=== PATIENT | female | born 1975 | race Caucasian/White ===

== ENCOUNTER 2018-08-18 16:36 | Inpatient (IN) | payer MEDICAID ==
[~2018-08-18] VITALS: Ht 157.5 cm; Wt 73.6 kg
--- NOTE | ~2018-08-18 | MORECARE ---
CASE MANAGEMENT DISCHARGE SUMMARY PATIENT: SUKHI COLLINS UNIT: [id number] ADM DATE: 08/19/18 AGE: 42 : [birth year] SEX: F ROOM/BED: D.[facility] AUTHOR: OSCAR CASILLAS PHYSICIAN: REFERRING PHYSICIAN: JOHN JESSICA MD DATE OF SERVICE: 08/26/18 Discharge Plan Patient Name: SUKHI COLLINS Facility: [facility]:[place] : 1975 Planned Disposition: Home Anticipated Discharge Date: 08/22/18 Discharge Date: 08/22/2018 Expected LOS: 3 Initial Reviewer: [email or web address] Initial Review Date: 08/26/2018 Generated: 08/26/18 9:52 am Patient Name: SUKHI COLLINS Page 67753 at 0852 All edits/amendments must be made on the electronic document DICTATION DATE: 08/26/18851 PIG IRON LOADER: CANDIS 08/26/18851 RPT#: [id number] DC DATE:08/22/18 STATUS: DIS IN [facility] [address] [place] [address] END OF REPORT
[2018-08-18] MEDS ORDERED: PROZAC40 MG PO (16:42)
[2018-08-18] MEDS ORDERED: LIPITOR40 MG PO (16:42)
[2018-08-18] MEDS ORDERED: AMBIEN10 MG PO (16:42)
[2018-08-18] MEDS ORDERED: PROTONIX40 MG PO (16:42)
[2018-08-18] MEDS ORDERED: PHENERGAN25 M1 PO (16:43)
[2018-08-18 16:58] LABS: APPEARANCE CLEAR (CLEAR); BILIRUBIN NEGATIVE (NEGATIVE); COLOR YELLOW (YELLOW); GLUCOSE NEGATIVE (NEGATIVE); KETONE SMALL mg/dL (NEGATIVE); NITRITE NEGATIVE (NEGATIVE); PROTEIN 1+ mg/dL (NEGATIVE); UROBILINOGEN NORMAL (NORMAL)
[2018-08-18 17:00] LABS: BACTERIA FEW /hpf (NONE SEEN); EPITHELIAL CELLS 0-5 /hpf (0-5); MUCUS >1+ /lpf (NONE SEEN); WHITE CELLS - URINE 0-5 /hpf (0-5)
[2018-08-18 17:58] LABS: APTT 25.6 SECONDS (22.8-39.4); INR 0.98 (0.85-1.17); PROTIME 12.7 SECONDS (11.6-15.0)
[2018-08-18 18:00] LABS: HEMOGLOBIN 13.7 g/dL (12-16); MCH 28.7 pg (26.0-34.0); MCHC 33.4 g/dL (31.0-37.0); MCV 85.8 fL (80.0-100.0); MEAN PLATELET VOLUME 11.3 fL (7.4-10.4); PLATELET COUNT 324 10x3/uL (130-400); RBC 4.78 10x6/uL (4.00-5.40); RDW 14.5 % (11.5-14.5); WBC 32.5 10x3/uL (4.8-10.8)
[2018-08-18 18:04] LABS: ALKALINE PHOSPHATASE 200 U/L (46-116); ALT (SGPT) 32 U/L (10-68); BILIRUBIN - TOTAL 0.27 mg/dL (0.2-1.3); CALC OSMOLALITY 274 mosm/kg (275-300); CALCIUM 9.7 mg/dL (8.5-10.1); CARBON DIOXIDE 26.8 mmol/L (21.0-32.0); CHLORIDE - SERUM 100 mmol/L (98-107); CREATININE - SERUM 0.7 mg/dL (0.6-1.3); GLUCOSE 101 mg/dL (74-106); POTASSIUM - SERUM 3.9 mmol/L (3.5-5.1); PROTEIN - SERUM 7.7 g/dL (6.4-8.2); SODIUM 137 mmol/L (136-145); UREA NITROGEN 15 mg/dL (7-18); eGFR NON AFRICAN AMERICAN > 90 mL/min (90-120)
[2018-08-18 18:43] LABS: LYMPHOCYTES 4 % (15-50); MONOCYTES 3 % (2-11); NEUTROPHILS 93 % (40-80); PLATELET ESTIMATE NORMAL
[2018-08-18 20:15] VITALS: BP 113/58
[2018-08-18 22:29] LABS: HEMATOCRIT 35.1 % (36.0-48.0); HEMOGLOBIN 11.4 g/dL (12-16)
[2018-08-19 04:30] VITALS: BP 109/50
[2018-08-19 04:44] LABS: BASOPHILS 0 % (0-2); EOSINOPHILS 0.1 % (0-7); HEMATOCRIT 33.2 % (36.0-48.0); HEMOGLOBIN 10.7 g/dL (12-16); IMMATURE GRANULOCYTES 0.7 % (0-5); LYMPHOCYTES 13.1 % (15-50); MCH 27.6 pg (26.0-34.0); MCHC 32.2 g/dL (31.0-37.0); MCV 85.6 fL (80.0-100.0); MEAN PLATELET VOLUME 12.3 fL (7.4-10.4); MONOCYTES 9.1 % (2-11); PLATELET COUNT 268 10x3/uL (130-400); RBC 3.88 10x6/uL (4.00-5.40); RDW 14.6 % (11.5-14.5); WBC 20.4 10x3/uL (4.8-10.8)
[2018-08-19 05:04] LABS: ALKALINE PHOSPHATASE 144 U/L (46-116); BILIRUBIN - TOTAL 0.28 mg/dL (0.2-1.3); CALCIUM 7.5 mg/dL (8.5-10.1); CARBON DIOXIDE 23.2 mmol/L (21.0-32.0); CHLORIDE - SERUM 107 mmol/L (98-107); CREATININE - SERUM 0.7 mg/dL (0.6-1.3); GLUCOSE 100 mg/dL (74-106); POTASSIUM - SERUM 3.5 mmol/L (3.5-5.1); SODIUM 140 mmol/L (136-145); eGFR NON AFRICAN AMERICAN > 90 mL/min (90-120)
[2018-08-19 05:07] LABS: ALBUMIN 2.8 g/dL (3.4-5.0); ALT (SGPT) 22 U/L (10-68); CALC OSMOLALITY 276 mosm/kg (275-300); PROTEIN - SERUM 5.6 g/dL (6.4-8.2); UREA NITROGEN 8 mg/dL (7-18)
[2018-08-19 07:20] VITALS: BP 150/83
[2018-08-19 08:01] VITALS: BP 109/50; BMI 29.3
[2018-08-19 12:30] VITALS: BMI 29.2
[2018-08-19 13:13] VITALS: BP 125/70
[2018-08-19 16:07] VITALS: Ht 157.5 cm; Wt 73.6 kg
[2018-08-19 17:30] LABS: % SATURATION 8 % (15-55); IRON 26 ug/dl (35-150); TOTAL IRON BIND CAPACITY 290 ug/dl (260-445); UNSAT IRON BIND CAPACITY 264 ug/dl (150-375)
[2018-08-19 20:00] VITALS: BP 144/75
[2018-08-19] MEDS ORDERED: REQUIP0.5 MG (20:08)
[2018-08-19] MEDS ORDERED: REQUIP0.5 MG PO (20:10)
[2018-08-20] VITALS (7 sets, daily range): BP systolic 120–156; BP diastolic 57–125
[2018-08-20 07:49] LABS: BASOPHILS 0.2 % (0-2); EOSINOPHILS 0.5 % (0-7); HEMATOCRIT 33.6 % (36.0-48.0); IMMATURE GRANULOCYTES 0.6 % (0-5); LYMPHOCYTES 16.7 % (15-50); MCHC 32.7 g/dL (31.0-37.0); MCV 85.5 fL (80.0-100.0); MEAN PLATELET VOLUME 12.1 fL (7.4-10.4); MONOCYTES 9.6 % (2-11); NEUTROPHILS 72.4 % (40-80); PLATELET COUNT 260 10x3/uL (130-400); RBC 3.93 10x6/uL (4.00-5.40); RDW 14.4 % (11.5-14.5)
[2018-08-21] VITALS: BP 134/64
[2018-08-21 05:53] VITALS: BP 106/57
[2018-08-21 07:55] VITALS: BP 139/62
[2018-08-21 12:52] VITALS: BP 142/105
[2018-08-21 17:47] VITALS: BP 143/75
[2018-08-22] VITALS: BP 121/53
[2018-08-22 01:05] VITALS: BP 144/62
[2018-08-22 04:00] VITALS: BP 109/94
[2018-08-22 08:19] VITALS: BP 117/60
[2018-08-22 11:02] VITALS: BP 144/75
[2018-08-22 14:40] LABS: BASOPHILS 0.2 % (0-2); EOSINOPHILS 1.4 % (0-7); HEMATOCRIT 30.3 % (36.0-48.0); HEMOGLOBIN 10.2 g/dL (12-16); IMMATURE GRANULOCYTES 0.5 % (0-5); LYMPHOCYTES 18.4 % (15-50); MCH 28.7 pg (26.0-34.0); MCHC 33.7 g/dL (31.0-37.0); MCV 85.4 fL (80.0-100.0); MEAN PLATELET VOLUME 11.4 fL (7.4-10.4); MONOCYTES 8.2 % (2-11); NEUTROPHILS 71.3 % (40-80); PLATELET COUNT 263 10x3/uL (130-400); RBC 3.55 10x6/uL (4.00-5.40); RDW 14.2 % (11.5-14.5); WBC 12.9 10x3/uL (4.8-10.8)
[2018-08-22 15:02] VITALS: BP 148/74
[2018-08-22] MEDS ORDERED: CARAFATE1 G PO (16:42)
[2018-09-05] MEDS ORDERED: LIPITOR40 MG PO (01:50)
== END 2018-08-22 17:44 | disposition home or self-care (01) | DRG 382 ==
LOC: D.ER 16:36 → D.M2 20:40 → OBSVTIME 20:40 → D.M2 08-19 14:57
PROVIDERS: Emergency Medicine; Family Medicine; Internal Medicine Gastroenterology; Legal Medicine
PROC: 0DJ08ZZ Inspection of Upper Intestinal Tract, Via Natural or Artificial Opening Endoscopic (ICD-10-PCS; principal; 2018-08-19 14:30)
DX: K22.11 Ulcer of esophagus with bleeding (principal); D72.829 Elevated white blood cell count, unspecified; K29.01 Acute gastritis with bleeding; R16.0 Hepatomegaly, not elsewhere classified; I80.9 Phlebitis and thrombophlebitis of unspecified site; E11.9 Type 2 diabetes mellitus without complications; K44.9 Diaphragmatic hernia without obstruction or gangrene; Z87.891 Personal history of nicotine dependence

== ENCOUNTER 2018-08-24 00:22 | Inpatient (IN) | payer MEDICAID ==
[2018-08-24] VITALS (7 sets, daily range): BP systolic 116–161; BP diastolic 64–90; Ht 157.5 cm; Wt 72.6 kg
[~2018-08-24] VITALS: Ht 157.5 cm; Wt 72.6 kg
--- NOTE | ~2018-08-24 | MORECARE ---
CASE MANAGEMENT DISCHARGE SUMMARY PATIENT: SUKHI COLLINS UNIT: [id number] ADM DATE: 08/24/18 AGE: 42 : [birth year] SEX: F ROOM/BED: D.2215 AUTHOR: VINNY,DOC PHYSICIAN: REFERRING PHYSICIAN: JOHN JESSICA MD DATE OF SERVICE: 08/26/18 Discharge Plan Patient Name: SUKHI COLLINS Facility: [facility]:[place] : 1975 Planned Disposition: Home Anticipated Discharge Date: 08/26/18 Discharge Date: 08/26/2018 Expected LOS: 2 Initial Reviewer: [email or web address] Initial Review Date: 08/26/2018 Generated: 08/26/18 9:31 pm Comments DCP- Discharge Planning Updated by [email or web address]: Anali Reyez on 08/26/18 3:[address] Patient Name: SUKHI COLLINS Admission Status: ER Accout number: [id number] Admission Date: 08-24-2018 : 1975 Admission Diagnosis:NAUSEA Attending: JOHN JESSICA Current LOS: 2 Anticipated DC Date: 08-26-2018 Planned Disposition: Home Primary Insurance: MEDICAID [place] Discharge Planning Comments: CM met with patient to discuss discharge plan, she is alone in the room. States she lives with her and he will pick her up on discharge. States she is independent with all ADL's and IADL's. States she does not have any DME or need any DME. States she is going to see a rhematologist at [facility] in October in [place]. States she has a long history of GI problems and see's Dr. Andrews for this. States she does not use any outside community resources in her home and declines need. Discharging home today. CM will continue to follow and assist with discharge planning/needs. Electric Spot Welder: Anali Reyez DCPIA - Discharge Planning Initial Assessment Updated by [email or web address]: Anali Reyez on 08/26/18 3:52 pm * Is the patient Alert and Oriented? Yes * How many steps to enter\exit or inside your home? 1/0 * PCP Dr. Jessica * [facility] [address] * Preadmission Environment Home with Family * ADLs Independent * Equipment None * List name and contact numbers for known caregivers / representatives who currently or will assist patient after discharge: Nain velazquez - [phone] * Verbal permission to speak to the caregivers and representatives has been obtained from the patient. Yes * Community resources currently utilized None * Additional services required to return to the preadmission environment? No * Can the patient safely return to the preadmission environment? Yes * Has this patient been hospitalized within the prior 30 days at any hospital? Yes Last DP export: 08/26/18 3:12 Patient Name: SUKHI COLLINS Page 49812 at 2031 All edits/amendments must be made on the electronic document DICTATION DATE: 08/26/182029 MATCHER LEATHER PARTS: CANDIS 08/26/182029 RPT#: [id number] DC DATE:08/26/18 STATUS: DIS IN [facility] [address] [place] [address] END OF REPORT
--- NOTE | ~2018-08-24 | MORECARE ---
CASE MANAGEMENT DISCHARGE SUMMARY PATIENT: SUKHI COLLINS UNIT: [id number] ADM DATE: 08/24/18 AGE: 42 : [birth year] SEX: F ROOM/BED: D.2215 AUTHOR: OSCAR CASILLAS PHYSICIAN: REFERRING PHYSICIAN: JOHN JESSICA MD DATE OF SERVICE: 08/26/18 Discharge Plan Patient Name: SUKHI COLLINS Facility: [facility]:[place] : 1975 Planned Disposition: Home Anticipated Discharge Date: 08/26/18 Discharge Date: Expected LOS: 2 Initial Reviewer: [email or web address] Initial Review Date: 08/26/2018 Generated: 08/26/18 4:53 pm DCPIA - Discharge Planning Initial Assessment Updated by [email or web address]: Anali Reyez on 08/26/18 3:52 pm * Is the patient Alert and Oriented? Yes * How many steps to enter\exit or inside your home? 1/0 * PCP Dr. Jessica * [facility] * Preadmission Environment Home with Family * ADLs Independent * Equipment None * List name and contact numbers for known caregivers / representatives who currently or will assist patient after discharge: Nain velazquez - [phone] * Verbal permission to speak to the caregivers and representatives has been obtained from the patient. Yes * Community resources currently utilized None * Additional services required to return to the preadmission environment? No * Can the patient safely return to the preadmission environment? Yes * Has this patient been hospitalized within the prior 30 days at any hospital? Yes Patient Name: SUKHI COLLINS Page 00366 at 1553 All edits/amendments must be made on the electronic document DICTATION DATE: 08/26/181552 LICENSED AIRCRAFT MAINTENANCE ENGINEER: CANDIS 08/26/181552 RPT#: [id number] DC DATE: STATUS: ADM IN [facility] [address] [place] [address] END OF REPORT
--- NOTE | ~2018-08-24 | MORECARE ---
CASE MANAGEMENT DISCHARGE SUMMARY PATIENT: SUKHI COLLINS UNIT: [id number] ADM DATE: 08/24/18 AGE: 42 : 77 SEX: F ROOM/BED: D.2215 AUTHOR: VINNY,DOC PHYSICIAN: REFERRING PHYSICIAN: JOHN JESSICA MD DATE OF SERVICE: 08/26/18 Discharge Plan Patient Name: SUKHI COLLINS Facility: [facility]:[place] : 1975 Planned Disposition: Home Anticipated Discharge Date: 08/26/18 Discharge Date: Expected LOS: 2 Initial Reviewer: [email or web address] Initial Review Date: 08/26/2018 Generated: 08/26/18 5:12 pm Comments DCP- Discharge Planning Updated by [email or web address]: Anali Reyez on 08/26/18 3:[address] Patient Name: SUKHI COLLINS Admission Status: ER Accout number: [id number] Admission Date: 08-24-2018 : 1975 Admission Diagnosis:NAUSEA Attending: JOHN JESSICA Current LOS: 2 Anticipated DC Date: 08-26-2018 Planned Disposition: Home Primary Insurance: MEDICAID [place] Discharge Planning Comments: CM met with patient to discuss discharge plan, she is alone in the room. States she lives with her and he will pick her up on discharge. States she is independent with all ADL's and IADL's. States she does not have any DME or need any DME. States she is going to see a rhematologist at [facility] in October in [place]. States she has a long history of GI problems and see's Dr. Andrews for this. States she does not use any outside community resources in her home and declines need. Discharging home today. CM will continue to follow and assist with discharge planning/needs. Mini Baccarat Dealer: Anali Reyez DCPIA - Discharge Planning Initial Assessment Updated by [email or web address]: Anali Reyez on 08/26/18 3:52 pm * Is the patient Alert and Oriented? Yes * How many steps to enter\exit or inside your home? 1/0 * PCP Dr. Jessica * [facility] [address] * Preadmission Environment Home with Family * ADLs Independent * Equipment None * List name and contact numbers for known caregivers / representatives who currently or will assist patient after discharge: Nain velazquez - [phone] * Verbal permission to speak to the caregivers and representatives has been obtained from the patient. Yes * Community resources currently utilized None * Additional services required to return to the preadmission environment? No * Can the patient safely return to the preadmission environment? Yes * Has this patient been hospitalized within the prior 30 days at any hospital? Yes Last DP export: 08/26/18 2:53 Patient Name: SUKHI COLLINS Page 83729 at 1612 All edits/amendments must be made on the electronic document DICTATION DATE: 08/26/181611 CASINO CAGE SUPERVISOR: CANDIS 08/26/181611 RPT#: [id number] DC DATE: STATUS: ADM IN [facility] [address] [place] [address] END OF REPORT
[~2018-08-24 00:22] MED LIST: AMBIEN10 MG PO; CARAFATE1 G PO; LIPITOR40 MG PO; PHENERGAN25 M1 PO; PROTONIX40 MG PO; PROZAC40 MG PO; REQUIP0.5 MG; REQUIP0.5 MG PO
[2018-08-24 00:50] LABS: BASOPHILS 0.2 % (0-2); EOSINOPHILS 1.3 % (0-7); HEMATOCRIT 33.9 % (36.0-48.0); HEMOGLOBIN 11.2 g/dL (12-16); IMMATURE GRANULOCYTES 0.7 % (0-5); LYMPHOCYTES 15.5 % (15-50); MCH 28.1 pg (26.0-34.0); MCV 85.2 fL (80.0-100.0); MEAN PLATELET VOLUME 11.3 fL (7.4-10.4); MONOCYTES 11.9 % (2-11); NEUTROPHILS 70.4 % (40-80); RBC 3.98 10x6/uL (4.00-5.40); RDW 14.6 % (11.5-14.5)
[2018-08-24 00:53] LABS: PLATELET COUNT 327 10x3/uL (130-400); WBC 17.5 10x3/uL (4.8-10.8)
[2018-08-24 01:01] LABS: APPEARANCE HAZY (CLEAR); BACTERIA NONE SEEN /hpf (NONE SEEN); BILIRUBIN NEGATIVE (NEGATIVE); COLOR YELLOW (YELLOW); EPITHELIAL CELLS 0-5 /hpf (0-5); KETONE SMALL mg/dL (NEGATIVE); NITRITE NEGATIVE (NEGATIVE); PROTEIN TRACE mg/dL (NEGATIVE); UROBILINOGEN NORMAL (NORMAL)
[2018-08-24 01:02] LABS: HCG URINE NEGATIVE (NEGATIVE)
[2018-08-24 01:15] LABS: GLUCOSE NEGATIVE (NEGATIVE)
[2018-08-24 01:29] LABS: ALBUMIN 2.9 g/dL (3.4-5.0); ALKALINE PHOSPHATASE 152 U/L (46-116); ALT (SGPT) 18 U/L (10-68); CALC OSMOLALITY 277 mosm/kg (275-300); CALCIUM 8.4 mg/dL (8.5-10.1); CARBON DIOXIDE 29.6 mmol/L (21.0-32.0); CHLORIDE - SERUM 105 mmol/L (98-107); CREATININE - SERUM 0.7 mg/dL (0.6-1.3); GLUCOSE 89 mg/dL (74-106); POTASSIUM - SERUM 3.2 mmol/L (3.5-5.1); PROTEIN - SERUM 6.6 g/dL (6.4-8.2); SODIUM 141 mmol/L (136-145); UREA NITROGEN 8 mg/dL (7-18); eGFR NON AFRICAN AMERICAN > 90 mL/min (90-120)
[2018-08-24 01:31] LABS: AMYLASE - SERUM 49 U/L (25-115); LIPASE 67 U/L (73-393); TROPONIN-I < 0.017 ng/mL (0.000-0.060)
[2018-08-24 18:40] LABS: APPEARANCE CLEAR (CLEAR); BILIRUBIN NEGATIVE (NEGATIVE); COLOR YELLOW (YELLOW); GLUCOSE NEGATIVE (NEGATIVE); KETONE NEGATIVE (NEGATIVE); NITRITE NEGATIVE (NEGATIVE); PROTEIN NEGATIVE (NEGATIVE); UROBILINOGEN NORMAL (NORMAL)
[2018-08-24 18:41] LABS: EPITHELIAL CELLS 0-5 /hpf (0-5); RED CELLS - URINE 0-5 /hpf (0-5); WHITE CELLS - URINE RARE /hpf (0-5)
[2018-08-25 00:30] VITALS: BP 150/78
[2018-08-25 04:30] VITALS: BP 161/68
[2018-08-25 06:54] LABS: BASOPHILS 0.1 % (0-2); EOSINOPHILS 2.3 % (0-7); HEMATOCRIT 30.8 % (36.0-48.0); HEMOGLOBIN 9.9 g/dL (12-16); LYMPHOCYTES 14.6 % (15-50); MCH 27.3 pg (26.0-34.0); MCHC 32.1 g/dL (31.0-37.0); MCV 85.1 fL (80.0-100.0); MEAN PLATELET VOLUME 11.4 fL (7.4-10.4); MONOCYTES 9.6 % (2-11); NEUTROPHILS 72.4 % (40-80); PLATELET COUNT 282 10x3/uL (130-400); RBC 3.62 10x6/uL (4.00-5.40); RDW 14.6 % (11.5-14.5)
[2018-08-25 06:57] LABS: WBC 11.6 10x3/uL (4.8-10.8)
[2018-08-25 07:10] LABS: INR 1.06 (0.85-1.17); PROTIME 13.3 SECONDS (11.6-15.0)
[2018-08-25 07:11] LABS: AMYLASE - SERUM 33 U/L (25-115); CALC OSMOLALITY 273 mosm/kg (275-300); CALCIUM 8.2 mg/dL (8.5-10.1); CARBON DIOXIDE 26.5 mmol/L (21.0-32.0); CHLORIDE - SERUM 105 mmol/L (98-107); CHOL - HDL RATIO 3.3 ratio (2.3-4.1); CHOLESTEROL, TOTAL 111 mg/dL (0-200); CREATININE - SERUM 0.5 mg/dL (0.6-1.3); GLUCOSE 92 mg/dL (74-106); HDL CHOLESTEROL 34 mg/dL (32-96); LDL CHOLESTEROL 60 mg/dL (0-100); LDL-HDL RATIO 1.8 ratio (1.5-3.5); LIPASE 51 U/L (73-393); POTASSIUM - SERUM 3.8 mmol/L (3.5-5.1); SODIUM 138 mmol/L (136-145); TRIGLYCERIDE 89 mg/dL (30-200); UREA NITROGEN 6 mg/dL (7-18); eGFR NON AFRICAN AMERICAN > 90 mL/min (90-120)
[2018-08-25 08:35] VITALS: BP 140/82
[2018-08-25 15:05] VITALS: BP 142/80
[2018-08-25 16:06] VITALS: BP 154/87
[2018-08-25 20:00] VITALS: BP 135/74
[2018-08-26] VITALS: BP 123/78
[2018-08-26 02:11] LABS: APPEARANCE CLEAR (CLEAR); BILIRUBIN NEGATIVE (NEGATIVE); COLOR YELLOW (YELLOW); GLUCOSE NEGATIVE (NEGATIVE); KETONE NEGATIVE (NEGATIVE); NITRITE NEGATIVE (NEGATIVE); PROTEIN NEGATIVE (NEGATIVE); SPECIFIC GRAVITY 1.015 (1.005-1.020); UROBILINOGEN NORMAL (NORMAL)
[2018-08-26 04:59] VITALS: BP 115/64
[2018-08-26 06:20] LABS: BASOPHILS 0.1 % (0-2); HEMATOCRIT 32.2 % (36.0-48.0); HEMOGLOBIN 10.4 g/dL (12-16); IMMATURE GRANULOCYTES 0.7 % (0-5); LYMPHOCYTES 10.7 % (15-50); MCH 27.8 pg (26.0-34.0); MCHC 32.3 g/dL (31.0-37.0); MCV 86.1 fL (80.0-100.0); MEAN PLATELET VOLUME 11.7 fL (7.4-10.4); MONOCYTES 11.2 % (2-11); NEUTROPHILS 76.3 % (40-80); PLATELET COUNT 330 10x3/uL (130-400); RBC 3.74 10x6/uL (4.00-5.40); RDW 14.8 % (11.5-14.5)
[2018-08-26 06:36] LABS: CALC OSMOLALITY 272 mosm/kg (275-300); CALCIUM 8.6 mg/dL (8.5-10.1); CARBON DIOXIDE 27.6 mmol/L (21.0-32.0); CHLORIDE - SERUM 103 mmol/L (98-107); CREATININE - SERUM 0.6 mg/dL (0.6-1.3); GLUCOSE 88 mg/dL (74-106); POTASSIUM - SERUM 3.5 mmol/L (3.5-5.1); SODIUM 138 mmol/L (136-145); UREA NITROGEN 6 mg/dL (7-18); eGFR NON AFRICAN AMERICAN > 90 mL/min (90-120)
[2018-08-26 06:48] LABS: WBC 14.9 10x3/uL (4.8-10.8)
[2018-08-26 08:50] VITALS: BP 140/55
[2018-08-26 09:00] VITALS: BP 140/55
[2018-08-26 12:10] VITALS: BP 146/85
[2018-08-26 13:30] VITALS: BP 146/85
[2018-09-05] MEDS ORDERED: LIPITOR40 MG PO (01:50)
== END 2018-08-26 16:36 | disposition home or self-care (01) | DRG 392 ==
LOC: D.ER 00:22 → D.MS 01:57
PROVIDERS: Family Medicine; Internal Medicine Gastroenterology; Legal Medicine
DX: R11.2 Nausea with vomiting, unspecified (principal); N39.0 Urinary tract infection, site not specified; A09 Infectious gastroenteritis and colitis, unspecified; K22.10 Ulcer of esophagus without bleeding; K21.9 Gastro-esophageal reflux disease without esophagitis; E78.5 Hyperlipidemia, unspecified; D64.9 Anemia, unspecified

== ENCOUNTER 2018-08-27 17:40 | Inpatient (IN) | payer MEDICAID ==
[~2018-08-27] VITALS: Ht 157.5 cm; Wt 72.7 kg
--- NOTE | ~2018-08-27 | MORECARE ---
CASE MANAGEMENT DISCHARGE SUMMARY PATIENT: SUKHI COLLINS UNIT: [id number] ADM DATE: 08/27/18 AGE: 42 : 77 SEX: F ROOM/BED: D.2218 AUTHOR: OSCAR CASILLAS PHYSICIAN: REFERRING PHYSICIAN: JOHN JESSICA MD DATE OF SERVICE: 09/02/18 Discharge Plan Patient Name: SUKHI COLLINS Facility: [facility]:[place] : 1975 Planned Disposition: Home or Self Care Anticipated Discharge Date: Discharge Date: Expected LOS: Initial Reviewer: [email or web address] Initial Review Date: 08/27/2018 Generated: 09/02/18 12:41 pm Comments DCP- Discharge Planning Updated by [email or web address]: Christie Meehan on 09/02/18 10:[address] JESSICA, HE WOULD LIKE TO SEE IF I CAN GET THE PATIENT SET UP WITH IV ABX TO BE DONE AT HOME. REFERRAL SENT TO [facility] DCP- Discharge Planning Updated by [email or web address]: Citlali Brown on 09/01/18 3:[address] PER MD DOCUMENTATION POSSIBLE [facility] TRANSFER SUNDAY. NO SPECIFIC ORDER TO FACILITATE TRANSFER AT THIS TIME. DCP- Discharge Planning Updated by [email or web address]: Christie Meehan on 08/29/18 10:[address] Patient Name: SUKHI COLLINS Admission Status: ER Accout number: [id number] Admission Date: 08-27-2018 : 1975 Admission Diagnosis: Attending: JOHN JESSICA Current LOS: 2 Anticipated DC Date: Planned Disposition: Home or Self Care Primary Insurance: MEDICAID [place] Discharge Planning Comments: CM met with patient to assess discharge planning needs. Patient stated that she is independent with her care at home and her will be the one to drive her home when she is discharged. She does not use any DME or community resources and does not think she will need it when she goes home. Cm will continue to follow and assist with DC planning Glacing Machine Tender: Christie Meehan DCPIA - Discharge Planning Initial Assessment Updated by [email or web address]: Christie Meehan on 08/29/18 11:44 am * Is the patient Alert and Oriented? Yes * How many steps to enter\exit or inside your home? * PCP ARACELY * Pharmacy [facility] * Preadmission Environment Home with Family * ADLs Independent * Equipment None * List name and contact numbers for known caregivers / representatives who currently or will assist patient after discharge: JENNA [phone] * Verbal permission to speak to the caregivers and representatives has been obtained from the patient. Yes * Community resources currently utilized None * Additional services required to return to the preadmission environment? No * Can the patient safely return to the preadmission environment? Yes * Has this patient been hospitalized within the prior 30 days at any hospital? Yes External Providers External Provider: [facility] Next Contact Date: Service Request Date: Service Type: Resolution: Reviewer: Comments: Last DP export: 09/02/18 10:35 a Patient Name: SUKHI COLLINS Page 94820 at 1141 All edits/amendments must be made on the electronic document DICTATION DATE: 09/02/18 1141 DIRECTOR GLOBAL INTELLIGENCE: CANDIS 09/02/18 1141 RPT#: [id number] DC DATE: STATUS: ADM IN [facility] [address] [place] [address] END OF REPORT
--- NOTE | ~2018-08-27 | MORECARE ---
CASE MANAGEMENT DISCHARGE SUMMARY PATIENT: SUKHI COLLINS UNIT: [id number] ADM DATE: 08/27/18 AGE: 42 : 77 SEX: F ROOM/BED: D.2218 AUTHOR: OSCAR CASILLAS PHYSICIAN: REFERRING PHYSICIAN: JOHN JESSICA MD DATE OF SERVICE: 09/04/18 Discharge Plan Patient Name: SUKHI COLLINS Facility: [facility]:[place] : 1975 Planned Disposition: Home or Self Care Anticipated Discharge Date: Discharge Date: 09/02/2018 Expected LOS: Initial Reviewer: [email or web address] Initial Review Date: 08/27/2018 Generated: 09/04/18 11:27 am Comments DCP- Discharge Planning Updated by [email or web address]: Christie Meehan on 09/02/18 10:[address] JESSICA, HE WOULD LIKE TO SEE IF I CAN GET THE PATIENT SET UP WITH IV ABX TO BE DONE AT HOME. REFERRAL SENT TO [facility] DCP- Discharge Planning Updated by [email or web address]: Citlali Brown on 09/01/18 3:[address] PER MD DOCUMENTATION POSSIBLE [facility] TRANSFER SUNDAY. NO SPECIFIC ORDER TO FACILITATE TRANSFER AT THIS TIME. DCP- Discharge Planning Updated by [email or web address]: Christie Meehan on 08/29/18 10:[address] Patient Name: SUKHI COLLINS Admission Status: ER Accout number: [id number] Admission Date: 08-27-2018 : 1975 Admission Diagnosis: Attending: JOHN JESSICA Current LOS: 2 Anticipated DC Date: Planned Disposition: Home or Self Care Primary Insurance: MEDICAID [place] Discharge Planning Comments: CM met with patient to assess discharge planning needs. Patient stated that she is independent with her care at home and her will be the one to drive her home when she is discharged. She does not use any DME or community resources and does not think she will need it when she goes home. Cm will continue to follow and assist with DC planning Belling Machine Operator: Christie Meehan DCPIA - Discharge Planning Initial Assessment Updated by [email or web address]: Christie Meehan on 08/29/18 11:44 am * Is the patient Alert and Oriented? Yes * How many steps to enter\exit or inside your home? * PCP ARACELY * Pharmacy [facility] * Preadmission Environment Home with Family * ADLs Independent * Equipment None * List name and contact numbers for known caregivers / representatives who currently or will assist patient after discharge: JENNA [phone] * Verbal permission to speak to the caregivers and representatives has been obtained from the patient. Yes * Community resources currently utilized None * Additional services required to return to the preadmission environment? No * Can the patient safely return to the preadmission environment? Yes * Has this patient been hospitalized within the prior 30 days at any hospital? Yes Last DP export: 09/02/18 10:41 a Patient Name: SUKHI COLLINS Page 78021 at 1028 All edits/amendments must be made on the electronic document DICTATION DATE: 09/04/18 1027 CABINET ASSEMBLER: CANDIS 09/04/18 1027 RPT#: [id number] DC DATE:09/02/18 STATUS: DIS IN [facility] [address] [place] [address] END OF REPORT
--- NOTE | ~2018-08-27 | MORECARE ---
CASE MANAGEMENT DISCHARGE SUMMARY PATIENT: SUKHI COLLINS UNIT: [id number] ADM DATE: 08/27/18 AGE: 42 : 77 SEX: F ROOM/BED: D.2218 AUTHOR: OSCAR CASILLAS PHYSICIAN: REFERRING PHYSICIAN: JOHN JESSICA MD DATE OF SERVICE: 08/29/18 Discharge Plan Patient Name: SUKHI COLLINS Facility: [facility]:[place] : 1975 Planned Disposition: Home or Self Care Anticipated Discharge Date: Discharge Date: Expected LOS: Initial Reviewer: [email or web address] Initial Review Date: 08/27/2018 Generated: 08/29/18 12:43 pm Patient Name: SUKHI COLLINS Page 24786 at 1143 All edits/amendments must be made on the electronic document DICTATION DATE: 08/29/18 1143 VISION TEACHER: CANDIS 08/29/18 1143 RPT#: [id number] DC DATE: STATUS: ADM IN [facility] [address] [place] [address] END OF REPORT
--- NOTE | ~2018-08-27 | MORECARE ---
CASE MANAGEMENT DISCHARGE SUMMARY PATIENT: SUKHI COLLINS UNIT: [id number] ADM DATE: 08/27/18 AGE: 42 : 77 SEX: F ROOM/BED: D.2218 AUTHOR: OSCAR CASILLAS PHYSICIAN: REFERRING PHYSICIAN: JOHN JESSICA MD DATE OF SERVICE: 09/01/18 Discharge Plan Patient Name: SUKHI COLLINS Facility: [facility]:[place] : 1975 Planned Disposition: Home or Self Care Anticipated Discharge Date: Discharge Date: Expected LOS: Initial Reviewer: [email or web address] Initial Review Date: 08/27/2018 Generated: 09/01/18 5:27 pm Comments DCP- Discharge Planning Updated by [email or web address]: Citlali Brown on 09/01/18 3:[address] PER MD DOCUMENTATION POSSIBLE [facility] TRANSFER SUNDAY. NO SPECIFIC ORDER TO FACILITATE TRANSFER AT THIS TIME. DCP- Discharge Planning Updated by [email or web address]: Christie Meehan on 08/29/18 10:[address] Patient Name: SUKHI COLLINS Admission Status: ER Accout number: [id number] Admission Date: 08-27-2018 : 1975 Admission Diagnosis: Attending: JOHN JESSICA Current LOS: 2 Anticipated DC Date: Planned Disposition: Home or Self Care Primary Insurance: MEDICAID [place] Discharge Planning Comments: CM met with patient to assess discharge planning needs. Patient stated that she is independent with her care at home and her will be the one to drive her home when she is discharged. She does not use any DME or community resources and does not think she will need it when she goes home. Cm will continue to follow and assist with DC planning Timers Inspector: Christie Meehan DCPIA - Discharge Planning Initial Assessment Updated by [email or web address]: Christie Meehan on 08/29/18 11:44 am * Is the patient Alert and Oriented? Yes * How many steps to enter\exit or inside your home? * PCP ARACELY * Pharmacy [facility] * Preadmission Environment Home with Family * ADLs Independent * Equipment None * List name and contact numbers for known caregivers / representatives who currently or will assist patient after discharge: JENNA [phone] * Verbal permission to speak to the caregivers and representatives has been obtained from the patient. Yes * Community resources currently utilized None * Additional services required to return to the preadmission environment? No * Can the patient safely return to the preadmission environment? Yes * Has this patient been hospitalized within the prior 30 days at any hospital? Yes Last DP export: 08/29/18 10:51 Patient Name: SUKHI COLLINS Page 74775 at 1627 All edits/amendments must be made on the electronic document DICTATION DATE: 09/01/181625 BOTTLING MACHINE OPERATOR: CANDIS 09/01/181625 RPT#: [id number] DC DATE: STATUS: ADM IN [facility] [address] [place] [address] END OF REPORT
--- NOTE | ~2018-08-27 | MORECARE ---
CASE MANAGEMENT DISCHARGE SUMMARY PATIENT: SUKHI COLLINS UNIT: [id number] ADM DATE: 08/27/18 AGE: 42 : 77 SEX: F ROOM/BED: D.2218 AUTHOR: OSCAR CASILLAS PHYSICIAN: REFERRING PHYSICIAN: JOHN JESSICA MD DATE OF SERVICE: 09/02/18 Discharge Plan Patient Name: SUKHI COLLINS Facility: [facility]:[place] : 1975 Planned Disposition: Home or Self Care Anticipated Discharge Date: Discharge Date: Expected LOS: Initial Reviewer: [email or web address] Initial Review Date: 08/27/2018 Generated: 09/02/18 12:34 pm Comments DCP- Discharge Planning Updated by [email or web address]: Citlali Brown on 09/01/18 3:[address] PER MD DOCUMENTATION POSSIBLE [facility] TRANSFER SUNDAY. NO SPECIFIC ORDER TO FACILITATE TRANSFER AT THIS TIME. DCP- Discharge Planning Updated by [email or web address]: Christie Meehan on 08/29/18 10:[address] Patient Name: SUKHI COLLINS Admission Status: ER Accout number: [id number] Admission Date: 08-27-2018 : 1975 Admission Diagnosis: Attending: JOHN JESSICA Current LOS: 2 Anticipated DC Date: Planned Disposition: Home or Self Care Primary Insurance: MEDICAID [place] Discharge Planning Comments: CM met with patient to assess discharge planning needs. Patient stated that she is independent with her care at home and her will be the one to drive her home when she is discharged. She does not use any DME or community resources and does not think she will need it when she goes home. Cm will continue to follow and assist with DC planning Public Health Clinical Nurse Specialist: Christie Meehan DCPIA - Discharge Planning Initial Assessment Updated by [email or web address]: Christie Meehan on 08/29/18 11:44 am * Is the patient Alert and Oriented? Yes * How many steps to enter\exit or inside your home? * PCP ARACELY * Pharmacy [facility] * Preadmission Environment Home with Family * ADLs Independent * Equipment None * List name and contact numbers for known caregivers / representatives who currently or will assist patient after discharge: JENNA [phone] * Verbal permission to speak to the caregivers and representatives has been obtained from the patient. Yes * Community resources currently utilized None * Additional services required to return to the preadmission environment? No * Can the patient safely return to the preadmission environment? Yes * Has this patient been hospitalized within the prior 30 days at any hospital? Yes External Providers External Provider: [facility] Next Contact Date: Service Request Date: Service Type: Resolution: Reviewer: Comments: Last DP export: 09/01/18 3:27 p Patient Name: SUKHI COLLINS Page 82013 at 1135 All edits/amendments must be made on the electronic document DICTATION DATE: 09/02/181133 BILLING AND INSURANCE COORDINATOR: CANDIS 09/02/181133 RPT#: [id number] DC DATE: STATUS: ADM IN [facility] [address] [place] [address] END OF REPORT
--- NOTE | ~2018-08-27 | MORECARE ---
CASE MANAGEMENT DISCHARGE SUMMARY PATIENT: SUKHI COLLINS UNIT: [id number] ADM DATE: 08/27/18 AGE: 42 : 77 SEX: F ROOM/BED: D.2218 AUTHOR: VINNYDOC PHYSICIAN: REFERRING PHYSICIAN: JOHN JESSICA MD DATE OF SERVICE: 08/29/18 Discharge Plan Patient Name: SUKHI COLLINS Facility: [facility]:[place] : 1975 Planned Disposition: Home or Self Care Anticipated Discharge Date: Discharge Date: Expected LOS: Initial Reviewer: [email or web address] Initial Review Date: 08/27/2018 Generated: 08/29/18 12:51 pm DCP- Discharge Planning Updated by [email or web address]: Christie Meehan on 08/29/18 10:[address] Patient Name: SUKHI COLLINS Admission Status: ER Accout number: [id number] Admission Date: 08-27-2018 : 1975 Admission Diagnosis: Attending: JOHN JESSICA Current LOS: 2 Anticipated DC Date: Planned Disposition: Home or Self Care Primary Insurance: MEDICAID [place] Discharge Planning Comments: CM met with patient to assess discharge planning needs. Patient stated that she is independent with her care at home and her will be the one to drive her home when she is discharged. She does not use any DME or community resources and does not think she will need it when she goes home. Cm will continue to follow and assist with DC planning Steward/Stewardess Chief Cargo Vessel: Christie Meehan DCPIA - Discharge Planning Initial Assessment Updated by [email or web address]: Christie Meehan on 08/29/18 11:44 am * Is the patient Alert and Oriented? Yes * How many steps to enter\exit or inside your home? * PCP ARACELY * Pharmacy [facility] * Preadmission Environment Home with Family * ADLs Independent * Equipment None * List name and contact numbers for known caregivers / representatives who currently or will assist patient after discharge: JENNA [phone] * Verbal permission to speak to the caregivers and representatives has been obtained from the patient. Yes * Community resources currently utilized None * Additional services required to return to the preadmission environment? No * Can the patient safely return to the preadmission environment? Yes * Has this patient been hospitalized within the prior 30 days at any hospital? Yes Last DP export: 08/29/18 10:43 Patient Name: SUKHI COLLINS Page 13963 at 1151 All edits/amendments must be made on the electronic document DICTATION DATE: 08/29/18 115 MARKET RESEARCH INTERN: CANDIS 08/29/18 1151 RPT#: [id number] DC DATE: STATUS: ADM IN [facility] [address] [place] [address] END OF REPORT
[2018-08-27 18:25] LABS: ALKALINE PHOSPHATASE 137 U/L (46-116); ALT (SGPT) 23 U/L (10-68); AMYLASE - SERUM 39 U/L (25-115); BILIRUBIN - TOTAL 0.17 mg/dL (0.2-1.3); CALC OSMOLALITY 270 mosm/kg (275-300); CALCIUM 8.7 mg/dL (8.5-10.1); CARBON DIOXIDE 24.7 mmol/L (21.0-32.0); CHLORIDE - SERUM 102 mmol/L (98-107); CREATININE - SERUM 0.6 mg/dL (0.6-1.3); GLUCOSE 111 mg/dL (74-106); LIPASE 65 U/L (73-393); MAGNESIUM - SERUM 1.6 mg/dL (1.8-2.4); PROTEIN - SERUM 6.7 g/dL (6.4-8.2); SODIUM 136 mmol/L (136-145); UREA NITROGEN 7 mg/dL (7-18); eGFR NON AFRICAN AMERICAN > 90 mL/min (90-120)
[2018-08-27 18:28] LABS: POTASSIUM - SERUM 2.9 mmol/L (3.5-5.1)
[2018-08-27 18:29] LABS: HEMATOCRIT 33.7 % (36.0-48.0); HEMOGLOBIN 11.1 g/dL (12-16); MCHC 32.9 g/dL (31.0-37.0); MCV 85.1 fL (80.0-100.0); MEAN PLATELET VOLUME 10.9 fL (7.4-10.4); PLATELET COUNT 385 10x3/uL (130-400); RBC 3.96 10x6/uL (4.00-5.40); RDW 14.8 % (11.5-14.5); WBC 21.4 10x3/uL (4.8-10.8)
[2018-08-27 19:25] LABS: APPEARANCE CLEAR (CLEAR); BILIRUBIN NEGATIVE (NEGATIVE); COLOR YELLOW (YELLOW); GLUCOSE NEGATIVE (NEGATIVE); KETONE NEGATIVE (NEGATIVE); NITRITE NEGATIVE (NEGATIVE); PROTEIN NEGATIVE (NEGATIVE); UROBILINOGEN NORMAL (NORMAL)
[2018-08-27 19:26] LABS: BACTERIA FEW /hpf (NONE SEEN); EPITHELIAL CELLS 0-5 /hpf (0-5); RED CELLS - URINE 0-5 /hpf (0-5); WHITE CELLS - URINE 0-5 /hpf (0-5)
[2018-08-27 19:34] VITALS: BP 127/71
[2018-08-27 19:40] LABS: EOSINOPHILS 2 % (0-7); LYMPHOCYTES 12 % (15-50); MONOCYTES 6 % (2-11); NEUTROPHILS 80 % (40-80); PLATELET ESTIMATE NORMAL
[2018-08-27 22:40] VITALS: BP 145/68
[2018-08-28] VITALS (8 sets, daily range): BP systolic 102–151; BP diastolic 53–95; BMI 29.2; BMI 29.3
[2018-08-28 06:54] LABS: BASOPHILS 0.2 % (0-2); EOSINOPHILS 1.4 % (0-7); HEMATOCRIT 32.1 % (36.0-48.0); HEMOGLOBIN 10.4 g/dL (12-16); IMMATURE GRANULOCYTES 0.7 % (0-5); LYMPHOCYTES 18.1 % (15-50); MCH 27.7 pg (26.0-34.0); MCHC 32.4 g/dL (31.0-37.0); MCV 85.6 fL (80.0-100.0); MEAN PLATELET VOLUME 10.6 fL (7.4-10.4); MONOCYTES 11.7 % (2-11); NEUTROPHILS 67.9 % (40-80); PLATELET COUNT 310 10x3/uL (130-400); RBC 3.75 10x6/uL (4.00-5.40); RDW 14.8 % (11.5-14.5)
[2018-08-28 06:56] LABS: WBC 10.2 10x3/uL (4.8-10.8)
[2018-08-28 07:19] LABS: ALBUMIN 2.6 g/dL (3.4-5.0); ALKALINE PHOSPHATASE 201 U/L (46-116); BILIRUBIN - TOTAL 0.37 mg/dL (0.2-1.3); CALCIUM 8.2 mg/dL (8.5-10.1); CARBON DIOXIDE 26.9 mmol/L (21.0-32.0); CHLORIDE - SERUM 103 mmol/L (98-107); CREATININE - SERUM 0.5 mg/dL (0.6-1.3); GLUCOSE 93 mg/dL (74-106); SODIUM 136 mmol/L (136-145); eGFR NON AFRICAN AMERICAN > 90 mL/min (90-120)
[2018-08-28 07:23] LABS: ALT (SGPT) 80 U/L (10-68); CALC OSMOLALITY 268 mosm/kg (275-300); POTASSIUM - SERUM 3.7 mmol/L (3.5-5.1); UREA NITROGEN 5 mg/dL (7-18)
[2018-08-29 01:06] VITALS: BP 128/60
[2018-08-29 05:00] LABS: BASOPHILS 0.1 % (0-2); EOSINOPHILS 1.1 % (0-7); HEMATOCRIT 31.1 % (36.0-48.0); HEMOGLOBIN 10.1 g/dL (12-16); IMMATURE GRANULOCYTES 0.7 % (0-5); LYMPHOCYTES 13.2 % (15-50); MCH 27.7 pg (26.0-34.0); MCHC 32.5 g/dL (31.0-37.0); MCV 85.2 fL (80.0-100.0); MEAN PLATELET VOLUME 10.7 fL (7.4-10.4); MONOCYTES 11.7 % (2-11); NEUTROPHILS 73.2 % (40-80); PLATELET COUNT 329 10x3/uL (130-400); RBC 3.65 10x6/uL (4.00-5.40); RDW 14.7 % (11.5-14.5); WBC 11.9 10x3/uL (4.8-10.8)
[2018-08-29 05:22] LABS: ALBUMIN 2.5 g/dL (3.4-5.0); ALKALINE PHOSPHATASE 170 U/L (46-116); ALT (SGPT) 65 U/L (10-68); BILIRUBIN - TOTAL 0.23 mg/dL (0.2-1.3); CALC OSMOLALITY 275 mosm/kg (275-300); CALCIUM 8.2 mg/dL (8.5-10.1); CARBON DIOXIDE 28.7 mmol/L (21.0-32.0); CHLORIDE - SERUM 104 mmol/L (98-107); CREATININE - SERUM 0.5 mg/dL (0.6-1.3); GLUCOSE 99 mg/dL (74-106); POTASSIUM - SERUM 3.5 mmol/L (3.5-5.1); PROTEIN - SERUM 5.8 g/dL (6.4-8.2); SODIUM 140 mmol/L (136-145); UREA NITROGEN 4 mg/dL (7-18); eGFR NON AFRICAN AMERICAN > 90 mL/min (90-120)
[2018-08-29 06:31] VITALS: BP 124/65
[2018-08-29 09:58] LABS: % SATURATION 16 % (15-55); IRON 38 ug/dl (35-150); TOTAL IRON BIND CAPACITY 233 ug/dl (260-445); UNSAT IRON BIND CAPACITY 195 ug/dl (150-375)
[2018-08-29 12:43] VITALS: BP 140/64
[2018-08-29 17:28] VITALS: BP 133/55
[2018-08-29 20:00] VITALS: BP 136/63
[2018-08-29 20:30] VITALS: Ht 157.5 cm; Wt 72.7 kg
[2018-08-30] VITALS: BP 123/63
[2018-08-30 01:42] LABS: HCG URINE NEGATIVE (NEGATIVE)
[2018-08-30 03:59] LABS: INR 1.08 (0.85-1.17); PROTIME 13.5 SECONDS (11.6-15.0)
[2018-08-30 04:00] VITALS: BP 124/61
[2018-08-30 04:16] LABS: ALBUMIN 2.7 g/dL (3.4-5.0); BILIRUBIN - DIRECT 0.09 mg/dL (0.00-0.30); BILIRUBIN - INDIRECT 0.06 mg/dL (0.00-1.00); BILIRUBIN - TOTAL 0.15 mg/dL (0.2-1.3); C-REACTIVE PROTEIN 3.5 mg/dL (0.0-0.9); PROTEIN - SERUM 6.1 g/dL (6.4-8.2)
[2018-08-30 05:06] LABS: ERYTHROCYTE SEDIMENTATION RATE 19 mm/hr (0-20)
[2018-08-30 08:30] VITALS: BP 129/55
[2018-08-30 09:16] LABS: HEPATITIS C ANTIBODY <0.1 S/CO RAT (0.0-0.9)
[2018-08-30 11:20] LABS: ANA REFLEX - ANTICHROMATIN ABS <0.2 AI (0.0-0.9); ANA REFLEX - CENTROMERE B ABS <0.2 AI (0.0-0.9); ANA REFLEX - DBL STRANDED DNA <1 IU/mL (0-9); ANA REFLEX - DIRECT Positive (Negative); ANA REFLEX - JO-1 AB <0.2 AI (0.0-0.9); ANA REFLEX - RNP ANTIBODIES 1.8 AI (0.0-0.9); ANA REFLEX - SCL-70 <0.2 AI (0.0-0.9); ANA REFLEX - SJOGRENS AB SSA 0.2 AI (0.0-0.9); ANA REFLEX - SJOGRENS AB SSB <0.2 AI (0.0-0.9); ANA REFLEX - SMITH AB <0.2 AI (0.0-0.9)
[2018-08-30 12:53] VITALS: BP 140/79
[2018-08-30 16:24] VITALS: BP 150/87
[2018-08-30 20:10] VITALS: BP 148/77
[2018-08-31] VITALS: BP 148/86
[2018-08-31 04:00] VITALS: BP 132/80
[2018-08-31 05:12] LABS: BASOPHILS 0.1 % (0-2); EOSINOPHILS 1.5 % (0-7); HEMATOCRIT 33.1 % (36.0-48.0); HEMOGLOBIN 10.6 g/dL (12-16); IMMATURE GRANULOCYTES 0.7 % (0-5); LYMPHOCYTES 17.5 % (15-50); MCH 27.5 pg (26.0-34.0); MEAN PLATELET VOLUME 11.5 fL (7.4-10.4); MONOCYTES 12.2 % (2-11); PLATELET COUNT 360 10x3/uL (130-400); RBC 3.85 10x6/uL (4.00-5.40); RDW 14.8 % (11.5-14.5); WBC 13.6 10x3/uL (4.8-10.8)
[2018-08-31 05:30] LABS: CALC OSMOLALITY 276 mosm/kg (275-300); CALCIUM 8.7 mg/dL (8.5-10.1); CARBON DIOXIDE 28.4 mmol/L (21.0-32.0); CHLORIDE - SERUM 104 mmol/L (98-107); CHOL - HDL RATIO 3.2 ratio (2.3-4.1); CHOLESTEROL, TOTAL 119 mg/dL (0-200); CREATININE - SERUM 0.7 mg/dL (0.6-1.3); GLUCOSE 97 mg/dL (74-106); HDL CHOLESTEROL 37 mg/dL (32-96); LDL CHOLESTEROL 63 mg/dL (0-100); LDL-HDL RATIO 1.7 ratio (1.5-3.5); POTASSIUM - SERUM 4.3 mmol/L (3.5-5.1); SODIUM 140 mmol/L (136-145); TRIGLYCERIDE 96 mg/dL (30-200); UREA NITROGEN 7 mg/dL (7-18); eGFR NON AFRICAN AMERICAN > 90 mL/min (90-120)
[2018-08-31 09:05] VITALS: BP 101/74
[2018-08-31 13:33] VITALS: BP 136/58
[2018-08-31 16:09] LABS: EBV - EARLY ANTIGEN AB IGG <9.0 U/mL (0.0-8.9); EBV VIRAL CAPSID AB IGG 42.5 U/mL (0.0-17.9); EBV VIRAL CAPSID AB IGM <36.0 U/mL (0.0-35.9)
[2018-08-31 16:27] VITALS: BP 107/61
[2018-08-31 20:00] VITALS: BP 140/73
[2018-09-01] VITALS: BP 152/50
[2018-09-01 04:00] VITALS: BP 132/54
[2018-09-01 09:31] VITALS: BP 109/58
[2018-09-01 12:37] VITALS: BP 118/65
[2018-09-01 15:09] LABS: MITOCHONDRIAL ANTIBODY 61.4 Units (0.0-20.0); SMOOTH MUSCLE ABS (ACTIN) 7 Units (0-19)
[2018-09-01 17:28] VITALS: BP 171/72
[2018-09-01 20:00] VITALS: BP 140/65
[2018-09-01 21:06] LABS: ALP - ISO (ALP) 172 IU/L (39-117); ALP - ISO (BONE) FRACTION 24 % (14-68); ALP - ISO (LIVER) FRACTION 72 % (18-85); ALP - ISO(INTESTINAL) FRACTION 4 % (0-18)
[2018-09-02] VITALS: BP 128/57
[2018-09-02 04:00] VITALS: BP 122/54
[2018-09-02 04:34] LABS: BASOPHILS 0.2 % (0-2); EOSINOPHILS 1.5 % (0-7); HEMATOCRIT 31.7 % (36.0-48.0); HEMOGLOBIN 10.3 g/dL (12-16); LYMPHOCYTES 18.7 % (15-50); MCH 27.7 pg (26.0-34.0); MCHC 32.5 g/dL (31.0-37.0); MCV 85.2 fL (80.0-100.0); MEAN PLATELET VOLUME 11.2 fL (7.4-10.4); MONOCYTES 12.7 % (2-11); NEUTROPHILS 65.9 % (40-80); PLATELET COUNT 360 10x3/uL (130-400); RBC 3.72 10x6/uL (4.00-5.40); RDW 14.9 % (11.5-14.5); WBC 12.8 10x3/uL (4.8-10.8)
[2018-09-02 08:45] VITALS: BP 117/33
[2018-09-02 13:07] VITALS: BP 118/43
[2018-09-05] MEDS ORDERED: LIPITOR40 MG PO (01:50)
== END 2018-09-02 14:57 | disposition home or self-care (01) | DRG 815 ==
LOC: D.ER 17:40 → D.MS 19:37 → D.EDHOLD 19:37 → D.MS 08-28 16:31
PROVIDERS: Anesthesiology; Emergency Medicine; Family Medicine; Internal Medicine Gastroenterology; Student in an Organized Health Care Education/Training Program
PROC: 0DBP8ZZ Excision of Rectum, Via Natural or Artificial Opening Endoscopic (ICD-10-PCS; 2018-08-29)
PROC: 0DDG8ZX Extraction of Left Large Intestine, Via Natural or Artificial Opening Endoscopic, Diagnostic (ICD-10-PCS; principal; 2018-08-29 06:29)
DX: D72.829 Elevated white blood cell count, unspecified (principal); B37.0 Candidal stomatitis; R10.84 Generalized abdominal pain; K52.9 Noninfective gastroenteritis and colitis, unspecified; R11.0 Nausea; K62.1 Rectal polyp; G24.9 Dystonia, unspecified; R11.2 Nausea with vomiting, unspecified

== ENCOUNTER 2018-09-04 22:28 | Inpatient (IN) | payer MEDICAID ==
[2018-09-04 23:22] LABS: HEMATOCRIT 38.1 % (36.0-48.0); HEMOGLOBIN 12.7 g/dL (12-16); MCHC 33.3 g/dL (31.0-37.0); MCV 84.1 fL (80.0-100.0); MEAN PLATELET VOLUME 11.1 fL (7.4-10.4); NEUTROPHILS 71.1 % (40-80); PLATELET COUNT 425 10x3/uL (130-400); RBC 4.53 10x6/uL (4.00-5.40); RDW 14.1 % (11.5-14.5); WBC 14.7 10x3/uL (4.8-10.8)
[2018-09-04 23:36] LABS: ALBUMIN 3.7 g/dL (3.4-5.0); ALKALINE PHOSPHATASE 154 U/L (46-116); ALT (SGPT) 22 U/L (10-68); BILIRUBIN - TOTAL 0.22 mg/dL (0.2-1.3); CALC OSMOLALITY 272 mosm/kg (275-300); CALCIUM 9.3 mg/dL (8.5-10.1); CARBON DIOXIDE 27.4 mmol/L (21.0-32.0); CHLORIDE - SERUM 100 mmol/L (98-107); CREATININE - SERUM 0.7 mg/dL (0.6-1.3); GLUCOSE 110 mg/dL (74-106); POTASSIUM - SERUM 3.1 mmol/L (3.5-5.1); SODIUM 136 mmol/L (136-145); UREA NITROGEN 13 mg/dL (7-18); eGFR NON AFRICAN AMERICAN > 90 mL/min (90-120)
[2018-09-04 23:38] LABS: AMYLASE - SERUM 72 U/L (25-115); LIPASE 83 U/L (73-393)
[2018-09-04 23:39] LABS: TROPONIN-I < 0.017 ng/mL (0.000-0.060)
[2018-09-05 05:11] LABS: BASOPHILS 0.2 % (0-2); EOSINOPHILS 1.3 % (0-7); HEMATOCRIT 33.4 % (36.0-48.0); HEMOGLOBIN 10.7 g/dL (12-16); IMMATURE GRANULOCYTES 0.5 % (0-5); LYMPHOCYTES 24.5 % (15-50); MCH 27.6 pg (26.0-34.0); MEAN PLATELET VOLUME 11.3 fL (7.4-10.4); NEUTROPHILS 62.5 % (40-80); PLATELET COUNT 392 10x3/uL (130-400); RBC 3.87 10x6/uL (4.00-5.40); RDW 14.8 % (11.5-14.5); WBC 11.6 10x3/uL (4.8-10.8)
[2018-09-05 05:16] LABS: MCV 86.3 fL (80.0-100.0)
[2018-09-05 05:20] LABS: ALBUMIN 2.8 g/dL (3.4-5.0); ALKALINE PHOSPHATASE 127 U/L (46-116); ALT (SGPT) 22 U/L (10-68); BILIRUBIN - TOTAL 0.26 mg/dL (0.2-1.3); CALC OSMOLALITY 276 mosm/kg (275-300); CALCIUM 8.2 mg/dL (8.5-10.1); CARBON DIOXIDE 25.3 mmol/L (21.0-32.0); CHLORIDE - SERUM 106 mmol/L (98-107); CREATININE - SERUM 0.6 mg/dL (0.6-1.3); GLUCOSE 88 mg/dL (74-106); POTASSIUM - SERUM 3.1 mmol/L (3.5-5.1); PROTEIN - SERUM 6.2 g/dL (6.4-8.2); SODIUM 140 mmol/L (136-145); UREA NITROGEN 11 mg/dL (7-18); eGFR NON AFRICAN AMERICAN > 90 mL/min (90-120)
[2018-09-05 14:52] LABS: APPEARANCE CLEAR (CLEAR); BILIRUBIN NEGATIVE (NEGATIVE); COLOR YELLOW (YELLOW); GLUCOSE NEGATIVE (NEGATIVE); HCG URINE NEGATIVE (NEGATIVE); KETONE NEGATIVE (NEGATIVE); NITRITE NEGATIVE (NEGATIVE); PROTEIN NEGATIVE (NEGATIVE); UROBILINOGEN NORMAL (NORMAL)
[2018-09-05 16:52] LABS: INR 1.11 (0.85-1.17); PROTIME 13.8 SECONDS (11.6-15.0)
[2018-09-06 04:47] LABS: BASOPHILS 0.2 % (0-2); EOSINOPHILS 1.8 % (0-7); HEMATOCRIT 31.1 % (36.0-48.0); HEMOGLOBIN 9.8 g/dL (12-16); IMMATURE GRANULOCYTES 0.4 % (0-5); LYMPHOCYTES 24.4 % (15-50); MCHC 31.5 g/dL (31.0-37.0); MCV 85.7 fL (80.0-100.0); MEAN PLATELET VOLUME 10.9 fL (7.4-10.4); MONOCYTES 10.4 % (2-11); NEUTROPHILS 62.8 % (40-80); PLATELET COUNT 349 10x3/uL (130-400); RBC 3.63 10x6/uL (4.00-5.40); RDW 14.3 % (11.5-14.5)
[2018-09-06 04:50] LABS: WBC 8.4 10x3/uL (4.8-10.8)
[2018-09-06 05:00] LABS: CALC OSMOLALITY 277 mosm/kg (275-300); CALCIUM 7.6 mg/dL (8.5-10.1); CARBON DIOXIDE 27.6 mmol/L (21.0-32.0); CHLORIDE - SERUM 108 mmol/L (98-107); CREATININE - SERUM 0.6 mg/dL (0.6-1.3); GLUCOSE 83 mg/dL (74-106); POTASSIUM - SERUM 3.5 mmol/L (3.5-5.1); SODIUM 141 mmol/L (136-145); eGFR NON AFRICAN AMERICAN > 90 mL/min (90-120)
[2018-09-06 05:04] LABS: UREA NITROGEN 7 mg/dL (7-18)
[2018-09-06 19:14] LABS: HEMATOCRIT 32.5 % (36.0-48.0); HEMOGLOBIN 10.6 g/dL (12-16)
[2018-09-07 04:58] LABS: BASOPHILS 0.4 % (0-2); HEMATOCRIT 31.6 % (36.0-48.0); HEMOGLOBIN 10.3 g/dL (12-16); IMMATURE GRANULOCYTES 0.2 % (0-5); LYMPHOCYTES 23.7 % (15-50); MCHC 32.6 g/dL (31.0-37.0); MCV 85.9 fL (80.0-100.0); MEAN PLATELET VOLUME 10.8 fL (7.4-10.4); NEUTROPHILS 63.7 % (40-80); PLATELET COUNT 351 10x3/uL (130-400); RBC 3.68 10x6/uL (4.00-5.40); RDW 14.6 % (11.5-14.5); WBC 8.5 10x3/uL (4.8-10.8)
[2018-09-07 05:11] LABS: CALC OSMOLALITY 275 mosm/kg (275-300); CARBON DIOXIDE 27.5 mmol/L (21.0-32.0); CHLORIDE - SERUM 105 mmol/L (98-107); CREATININE - SERUM 0.6 mg/dL (0.6-1.3); GLUCOSE 94 mg/dL (74-106); POTASSIUM - SERUM 3.5 mmol/L (3.5-5.1); SODIUM 140 mmol/L (136-145); eGFR NON AFRICAN AMERICAN > 90 mL/min (90-120)
[2018-09-07 05:13] LABS: UREA NITROGEN 4 mg/dL (7-18)
[2018-09-08 05:05] LABS: BASOPHILS 0.2 % (0-2); EOSINOPHILS 2.1 % (0-7); HEMATOCRIT 31.6 % (36.0-48.0); HEMOGLOBIN 10.2 g/dL (12-16); IMMATURE GRANULOCYTES 0.3 % (0-5); LYMPHOCYTES 25.3 % (15-50); MCH 27.5 pg (26.0-34.0); MCHC 32.3 g/dL (31.0-37.0); MCV 85.2 fL (80.0-100.0); MONOCYTES 13.5 % (2-11); NEUTROPHILS 58.6 % (40-80); PLATELET COUNT 331 10x3/uL (130-400); RBC 3.71 10x6/uL (4.00-5.40); RDW 14.6 % (11.5-14.5); WBC 8.9 10x3/uL (4.8-10.8)
[2018-09-08 05:24] LABS: CALC OSMOLALITY 275 mosm/kg (275-300); CALCIUM 8.4 mg/dL (8.5-10.1); CARBON DIOXIDE 28.9 mmol/L (21.0-32.0); CHLORIDE - SERUM 105 mmol/L (98-107); CREATININE - SERUM 0.5 mg/dL (0.6-1.3); GLUCOSE 115 mg/dL (74-106); POTASSIUM - SERUM 3.6 mmol/L (3.5-5.1); SODIUM 139 mmol/L (136-145); UREA NITROGEN 4 mg/dL (7-18); eGFR NON AFRICAN AMERICAN > 90 mL/min (90-120)
== END 2018-09-10 19:44 | disposition home or self-care (01) | DRG 379 ==
LOC: D.ER 22:28 → D.EDHOLD 23:55 → D.MS 09-05 00:07
PROVIDERS: Family Medicine; Internal Medicine Gastroenterology; Legal Medicine
PROC: 0DB68ZX Excision of Stomach, Via Natural or Artificial Opening Endoscopic, Diagnostic (ICD-10-PCS; principal; 2018-09-05)
DX: K62.5 Hemorrhage of anus and rectum (principal); K31.84 Gastroparesis; K29.70 Gastritis, unspecified, without bleeding; D50.0 Iron deficiency anemia secondary to blood loss (chronic)

== ENCOUNTER 2018-09-12 13:25 | Inpatient (IN) | payer MEDICAID ==
[~2018-09-12] VITALS: Ht 157.5 cm; Wt 72.6 kg
--- NOTE | ~2018-09-12 | MORECARE ---
CASE MANAGEMENT DISCHARGE SUMMARY PATIENT: SUKHI COLLINS UNIT: [id number] ADM DATE: 09/12/18 AGE: 42 : 77 SEX: F ROOM/BED: D.7689 AUTHOR: OSCAR CASILLAS PHYSICIAN: REFERRING PHYSICIAN: JOHN JESSICA MD DATE OF SERVICE: 09/13/18 Discharge Plan Patient Name: SUKHI COLLINS Facility: [facility]:[place] : 1975 Planned Disposition: Acute Care Hospital Anticipated Discharge Date: 09/13/18 Discharge Date: Expected LOS: 1 Initial Reviewer: [email or web address] Initial Review Date: 09/13/2018 Generated: 09/13/18 6:15 pm DCPIA - Discharge Planning Initial Assessment Updated by [email or web address]: Issa Avelar on 09/13/18 5:14 pm * Is the patient Alert and Oriented? Yes * How many steps to enter\exit or inside your home? * PCP DR. JESSICA * Pharmacy [facility] ON [facility] * Preadmission Environment Home with Family * ADLs Independent * Equipment None * Other Equipment NO MEDICAL EQUIPMENT PROVIDER PREFERENCE * List name and contact numbers for known caregivers / representatives who currently or will assist patient after discharge: JENNA SHIN, SPOUSE, * Verbal permission to speak to the caregivers and representatives has been obtained from the patient. N/A * Community resources currently utilized None * Please name any agencies selected above. NONE * Additional services required to return to the preadmission environment? Yes * Can the patient safely return to the preadmission environment? Yes * Has this patient been hospitalized within the prior 30 days at any hospital? Yes Patient Name: SUKHI COLLINS Page 23600 at 1715 All edits/amendments must be made on the electronic document DICTATION DATE: 09/13/181714 GUIDE TRAVEL: CANDIS 09/13/181714 RPT#: [id number] DC DATE: STATUS: ADM IN [facility] [address] [place] [address] END OF REPORT
--- NOTE | ~2018-09-12 | MORECARE ---
CASE MANAGEMENT DISCHARGE SUMMARY PATIENT: SUKHI COLLINS UNIT: [id number] ADM DATE: 09/12/18 AGE: 42 : 77 SEX: F ROOM/BED: D.3248 AUTHOR: OSCAR CASILLAS PHYSICIAN: REFERRING PHYSICIAN: JOHN JESSICA MD DATE OF SERVICE: 09/17/18 Discharge Plan Patient Name: SUKHI COLLINS Facility: [facility]:[place] : 1975 Planned Disposition: Acute Care Hospital Anticipated Discharge Date: 09/16/18 Discharge Date: 09/16/2018 Expected LOS: 4 Initial Reviewer: [email or web address] Initial Review Date: 09/13/2018 Generated: 09/17/18 9:36 am Comments DCP- Discharge Planning Updated by [email or web address]: Issa Avelar on 09/13/18 4:[address] Patient Name: SUKHI COLLINS Admission Status: ER Accout number: [id number] Admission Date: 09-12-2018 : 1975 Admission Diagnosis:GASTROPARESIS Attending: JOHN JESSICA Current LOS: 1 Anticipated DC Date: 09-13-2018 Planned Disposition: Acute Care Hospital Primary Insurance: MEDICAID [place] PLANNED EXTERNAL PROVIDER: [facility] [place] Discharge Planning Comments: CM SPOKE TO NATHALIA BAIG FOR DR. JESSICA WHO INFORMED CM THAT IS CALLING [facility] TO TRY TO TRANSFER PT DUE TO PT'S FREQUENT ADMISSIONS AND NEED FOR SPECIALTY CARE. CM MET WITH PT IN ROOM TO DISCUSS DISCHARGE PLANNING AND NEEDS. PT REPORTS LIVING AT HOME INDEPENDENTLY WITH HER SPOUSE. PT HAS NO MEDICAL EQUIPMENT AND NO OUTSIDE SERVICES ASSISTING IN THE HOME. CM DISCUSSED HOSPITAL TRANSFER TO [facility], PT REPORTS DISCUSSING THIS WITH JOVANNI EARLIER AND IS IN AGREEMENT AND IS HOPEFUL THEY CAN HELP HER AND WILL ACCEPT, PT REPORTS HER FAMILY WILL PICK HER UP FOR DISCHARGE HOME. CM WAITING [facility] PHYSICIAN INFORMATION FROM DR. JESSICA OF TRANSFER ACCEPTANCE OR DENIIAL BY [facility]. Final Block Press Operator: Issa Avelar DCPIA - Discharge Planning Initial Assessment Updated by [email or web address]: Issa Avelar on 09/13/18 5:14 pm * Is the patient Alert and Oriented? Yes * How many steps to enter\exit or inside your home? * PCP DR. JESSICA * Pharmacy [facility] [address] * Preadmission Environment Home with Family * ADLs Independent * Equipment None * Other Equipment NO MEDICAL EQUIPMENT PROVIDER PREFERENCE * List name and contact numbers for known caregivers / representatives who currently or will assist patient after discharge: JENNA SHIN, SPOUSE, * Verbal permission to speak to the caregivers and representatives has been obtained from the patient. N/A * Community resources currently utilized None * Please name any agencies selected above. NONE * Additional services required to return to the preadmission environment? Yes * Can the patient safely return to the preadmission environment? Yes * Has this patient been hospitalized within the prior 30 days at any hospital? Yes Last DP export: 09/13/18 4:25 Patient Name: SUKHI COLLINS Page 45358 at 0836 All edits/amendments must be made on the electronic document DICTATION DATE: 09/17/18 0836 HAT STOCK LAMINATING MACHINE OPERATOR: CANDIS 09/17/18 0836 RPT#: [id number] DC DATE:09/16/18 STATUS: DIS IN [facility] [address] [place] [address] END OF REPORT
--- NOTE | ~2018-09-12 | MORECARE ---
CASE MANAGEMENT DISCHARGE SUMMARY PATIENT: SUKHI COLLINS UNIT: [id number] ADM DATE: 09/12/18 AGE: 42 : 77 SEX: F ROOM/BED: D.5771 AUTHOR: OSCAR CASILLAS PHYSICIAN: REFERRING PHYSICIAN: JOHN JESSICA MD DATE OF SERVICE: 09/13/18 Discharge Plan Patient Name: SUKHI COLLINS Facility: [facility]:[place] : 1975 Planned Disposition: Acute Care Hospital Anticipated Discharge Date: 09/13/18 Discharge Date: Expected LOS: 1 Initial Reviewer: [email or web address] Initial Review Date: 09/13/2018 Generated: 09/13/18 6:25 pm Comments DCP- Discharge Planning Updated by [email or web address]: Issa Avelar on 09/13/18 4:[address] Patient Name: SUKHI COLLINS Admission Status: ER Accout number: [id number] Admission Date: 09-12-2018 : 1975 Admission Diagnosis:GASTROPARESIS Attending: JOHN JESSICA Current LOS: 1 Anticipated DC Date: 09-13-2018 Planned Disposition: Acute Care Hospital Primary Insurance: MEDICAID [place] PLANNED EXTERNAL PROVIDER: [facility] PIPPA PASSES Discharge Planning Comments: CM SPOKE TO NATHALIA BAIG FOR DR. JESSICA WHO INFORMED CM THAT IS CALLING [facility] TO TRY TO TRANSFER PT DUE TO PT'S FREQUENT ADMISSIONS AND NEED FOR SPECIALTY CARE. CM MET WITH PT IN ROOM TO DISCUSS DISCHARGE PLANNING AND NEEDS. PT REPORTS LIVING AT HOME INDEPENDENTLY WITH HER SPOUSE. PT HAS NO MEDICAL EQUIPMENT AND NO OUTSIDE SERVICES ASSISTING IN THE HOME. CM DISCUSSED HOSPITAL TRANSFER TO [facility], PT REPORTS DISCUSSING THIS WITH JOVANNI EARLIER AND IS IN AGREEMENT AND IS HOPEFUL THEY CAN HELP HER AND WILL ACCEPT, PT REPORTS HER FAMILY WILL PICK HER UP FOR DISCHARGE HOME. CM WAITING [facility] PHYSICIAN INFORMATION FROM DR. JESSICA OF TRANSFER ACCEPTANCE OR DENIIAL BY [facility]. Floatlight Loading Supervisor: Issa Avelar DCPIA - Discharge Planning Initial Assessment Updated by [email or web address]: Issa Avelar on 09/13/18 5:14 pm * Is the patient Alert and Oriented? Yes * How many steps to enter\exit or inside your home? * PCP DR. JESSICA * Pharmacy [facility] [address] * Preadmission Environment Home with Family * ADLs Independent * Equipment None * Other Equipment NO MEDICAL EQUIPMENT PROVIDER PREFERENCE * List name and contact numbers for known caregivers / representatives who currently or will assist patient after discharge: JENNA SHIN, SPOUSE, * Verbal permission to speak to the caregivers and representatives has been obtained from the patient. N/A * Community resources currently utilized None * Please name any agencies selected above. NONE * Additional services required to return to the preadmission environment? Yes * Can the patient safely return to the preadmission environment? Yes * Has this patient been hospitalized within the prior 30 days at any hospital? Yes Last DP export: 09/13/18 4:15 Patient Name: SUKHI COLLINS Page 60271 at 1724 All edits/amendments must be made on the electronic document DICTATION DATE: 09/13/181723 SAFETY INSTRUCTOR: CANDIS 09/13/181723 RPT#: [id number] DC DATE: STATUS: ADM IN [facility] [address] [place] [address] END OF REPORT
[2018-09-12 14:50] LABS: BASOPHILS 0.2 % (0-2); EOSINOPHILS 0.5 % (0-7); HEMATOCRIT 36.1 % (36.0-48.0); HEMOGLOBIN 11.8 g/dL (12-16); IMMATURE GRANULOCYTES 0.4 % (0-5); LYMPHOCYTES 16.1 % (15-50); MCH 27.4 pg (26.0-34.0); MCHC 32.7 g/dL (31.0-37.0); MONOCYTES 8.2 % (2-11); NEUTROPHILS 74.6 % (40-80); PLATELET COUNT 363 10x3/uL (130-400); WBC 11.8 10x3/uL (4.8-10.8)
[2018-09-12 15:10] LABS: ALBUMIN 3.2 g/dL (3.4-5.0); ALKALINE PHOSPHATASE 125 U/L (46-116); ALT (SGPT) 20 U/L (10-68); BILIRUBIN - TOTAL 0.22 mg/dL (0.2-1.3); CALC OSMOLALITY 277 mosm/kg (275-300); CARBON DIOXIDE 24.4 mmol/L (21.0-32.0); CHLORIDE - SERUM 102 mmol/L (98-107); CREATININE - SERUM 0.6 mg/dL (0.6-1.3); GLUCOSE 110 mg/dL (74-106); LIPASE 73 U/L (73-393); POTASSIUM - SERUM 3.8 mmol/L (3.5-5.1); PROTEIN - SERUM 7.1 g/dL (6.4-8.2); SODIUM 139 mmol/L (136-145); UREA NITROGEN 9 mg/dL (7-18); eGFR NON AFRICAN AMERICAN > 90 mL/min (90-120)
[2018-09-12 16:07] VITALS: BP 149/75
[2018-09-12 20:00] VITALS: BP 139/64
[2018-09-13] VITALS (7 sets, daily range): BP systolic 104–140; BP diastolic 50–69; BMI 29.2
[2018-09-14] VITALS (7 sets, daily range): BP systolic 109–141; BP diastolic 46–83; Ht 157.5 cm; Wt 72.6 kg
[2018-09-14 10:18] LABS: BASOPHILS 0.2 % (0-2); EOSINOPHILS 1.6 % (0-7); HEMATOCRIT 33.1 % (36.0-48.0); HEMOGLOBIN 10.4 g/dL (12-16); IMMATURE GRANULOCYTES 0.5 % (0-5); LYMPHOCYTES 18.6 % (15-50); MCH 27.1 pg (26.0-34.0); MCHC 31.4 g/dL (31.0-37.0); MEAN PLATELET VOLUME 10.9 fL (7.4-10.4); MONOCYTES 11.1 % (2-11); PLATELET COUNT 318 10x3/uL (130-400); RBC 3.84 10x6/uL (4.00-5.40); RDW 14.5 % (11.5-14.5); WBC 10.7 10x3/uL (4.8-10.8)
[2018-09-14 10:23] LABS: MCV 86.2 fL (80.0-100.0)
[2018-09-14 10:38] LABS: ALBUMIN 2.9 g/dL (3.4-5.0); ALKALINE PHOSPHATASE 125 U/L (46-116); ALT (SGPT) 19 U/L (10-68); BILIRUBIN - TOTAL 0.11 mg/dL (0.2-1.3); CALCIUM 8.3 mg/dL (8.5-10.1); CARBON DIOXIDE 28.8 mmol/L (21.0-32.0); CHLORIDE - SERUM 103 mmol/L (98-107); CREATININE - SERUM 0.6 mg/dL (0.6-1.3); GLUCOSE 81 mg/dL (74-106); POTASSIUM - SERUM 3.3 mmol/L (3.5-5.1); PROTEIN - SERUM 6.2 g/dL (6.4-8.2); SODIUM 139 mmol/L (136-145); eGFR NON AFRICAN AMERICAN > 90 mL/min (90-120)
[2018-09-14 10:39] LABS: CALC OSMOLALITY 274 mosm/kg (275-300); UREA NITROGEN 6 mg/dL (7-18)
[2018-09-14 15:49] LABS: APPEARANCE CLEAR (CLEAR); BILIRUBIN NEGATIVE (NEGATIVE); COLOR STRAW (YELLOW); GLUCOSE NEGATIVE (NEGATIVE); KETONE NEGATIVE (NEGATIVE); NITRITE NEGATIVE (NEGATIVE); PROTEIN NEGATIVE (NEGATIVE); UROBILINOGEN NORMAL (NORMAL)
[2018-09-14 15:53] LABS: BACTERIA FEW /hpf (NONE SEEN); RED CELLS - URINE 0-5 /hpf (0-5); WHITE CELLS - URINE 0-5 /hpf (0-5)
[2018-09-15] VITALS (7 sets, daily range): BP systolic 115–150; BP diastolic 34–77
== END 2018-09-16 00:14 | disposition left against medical advice (07) | DRG 392 ==
LOC: D.ER 13:25 → D.EDHOLD 16:42 → D.M2 16:42 → D.SDCHOLD 18:39 → D.M2 18:43
PROVIDERS: Family Medicine; Legal Medicine
DX: K31.84 Gastroparesis (principal); K59.00 Constipation, unspecified; M32.9 Systemic lupus erythematosus, unspecified; K21.9 Gastro-esophageal reflux disease without esophagitis; F32.9 Major depressive disorder, single episode, unspecified; F41.9 Anxiety disorder, unspecified

== ENCOUNTER 2018-09-26 13:33 | Emergency (ER) | payer MEDICAID ==
[~2018-09-26] VITALS: Ht 157.5 cm; Wt 72.7 kg
[2018-09-26 13:47] VITALS: Ht 157.5 cm; Wt 72.7 kg
[2018-09-26 14:08] LABS: BASOPHILS 0.1 % (0-2); EOSINOPHILS 0.8 % (0-7); HEMATOCRIT 37.2 % (36.0-48.0); HEMOGLOBIN 12.1 g/dL (12-16); IMMATURE GRANULOCYTES 0.5 % (0-5); LYMPHOCYTES 13.4 % (15-50); MCH 27.4 pg (26.0-34.0); MCHC 32.5 g/dL (31.0-37.0); MCV 84.2 fL (80.0-100.0); MEAN PLATELET VOLUME 11.2 fL (7.4-10.4); MONOCYTES 9.9 % (2-11); NEUTROPHILS 75.3 % (40-80); PLATELET COUNT 331 10x3/uL (130-400); RBC 4.42 10x6/uL (4.00-5.40); RDW 14.6 % (11.5-14.5); WBC 14.6 10x3/uL (4.8-10.8)
[2018-09-26 14:29] LABS: ALBUMIN 3.3 g/dL (3.4-5.0); ALKALINE PHOSPHATASE 147 U/L (46-116); ALT (SGPT) 30 U/L (10-68); AMYLASE - SERUM 66 U/L (25-115); BILIRUBIN - TOTAL 0.12 mg/dL (0.2-1.3); CALC OSMOLALITY 277 mosm/kg (275-300); CALCIUM 8.5 mg/dL (8.5-10.1); CARBON DIOXIDE 23.8 mmol/L (21.0-32.0); CHLORIDE - SERUM 104 mmol/L (98-107); CREATININE - SERUM 0.7 mg/dL (0.6-1.3); GLUCOSE 84 mg/dL (74-106); LIPASE 141 U/L (73-393); POTASSIUM - SERUM 3.2 mmol/L (3.5-5.1); PROTEIN - SERUM 7.3 g/dL (6.4-8.2); SODIUM 140 mmol/L (136-145); UREA NITROGEN 13 mg/dL (7-18); eGFR NON AFRICAN AMERICAN > 90 mL/min (90-120)
[2018-09-26 15:21] LABS: APPEARANCE CLEAR (CLEAR); BILIRUBIN NEGATIVE (NEGATIVE); COLOR YELLOW (YELLOW); EPITHELIAL CELLS 0-5 /hpf (0-5); GLUCOSE NEGATIVE (NEGATIVE); KETONE NEGATIVE (NEGATIVE); NITRITE NEGATIVE (NEGATIVE); PROTEIN NEGATIVE (NEGATIVE); RED CELLS - URINE 0-5 /hpf (0-5); SPECIFIC GRAVITY 1.015 (1.005-1.020); UROBILINOGEN NORMAL (NORMAL); WHITE CELLS - URINE NSEEN /hpf (0-5)
[2018-09-26 19:02] VITALS: BP 145/76
== END 2018-09-26 19:02 | disposition home or self-care (01) ==
LOC: D.ER 13:33
PROVIDERS: Family Medicine
DX: R10.84 Generalized abdominal pain (principal); D72.829 Elevated white blood cell count, unspecified; M32.9 Systemic lupus erythematosus, unspecified; E87.6 Hypokalemia; R11.0 Nausea

== ENCOUNTER 2018-09-28 12:22 | Emergency (ER) | payer MEDICAID ==
[~2018-09-28] VITALS: Ht 157.5 cm; Wt 72.7 kg
[2018-09-28 12:44] VITALS: Ht 157.5 cm; Wt 72.7 kg
[2018-09-28 13:03] LABS: BASOPHILS 0.2 % (0-2); EOSINOPHILS 1.1 % (0-7); HEMATOCRIT 39.5 % (36.0-48.0); IMMATURE GRANULOCYTES 0.6 % (0-5); LYMPHOCYTES 13.6 % (15-50); MCH 27.9 pg (26.0-34.0); MCHC 32.9 g/dL (31.0-37.0); MCV 84.8 fL (80.0-100.0); MEAN PLATELET VOLUME 11.8 fL (7.4-10.4); MONOCYTES 7.8 % (2-11); NEUTROPHILS 76.7 % (40-80); PLATELET COUNT 368 10x3/uL (130-400); RBC 4.66 10x6/uL (4.00-5.40); RDW 14.6 % (11.5-14.5); WBC 13.3 10x3/uL (4.8-10.8)
[2018-09-28 13:38] LABS: ALBUMIN 3.2 g/dL (3.4-5.0); ALKALINE PHOSPHATASE 163 U/L (46-116); ALT (SGPT) 32 U/L (10-68); AMYLASE - SERUM 56 U/L (25-115); CALCIUM 8.6 mg/dL (8.5-10.1); CARBON DIOXIDE 23.1 mmol/L (21.0-32.0); CHLORIDE - SERUM 103 mmol/L (98-107); CREATININE - SERUM 0.6 mg/dL (0.6-1.3); GLUCOSE 101 mg/dL (74-106); LIPASE 122 U/L (73-393); POTASSIUM - SERUM 3.6 mmol/L (3.5-5.1); PROTEIN - SERUM 6.9 g/dL (6.4-8.2); SODIUM 137 mmol/L (136-145); eGFR NON AFRICAN AMERICAN > 90 mL/min (90-120)
[2018-09-28 13:39] LABS: CALC OSMOLALITY 271 mosm/kg (275-300); UREA NITROGEN 8 mg/dL (7-18)
[2018-09-28 14:21] LABS: APPEARANCE CLEAR (CLEAR); BILIRUBIN NEGATIVE (NEGATIVE); COLOR YELLOW (YELLOW); EPITHELIAL CELLS 0-5 /hpf (0-5); GLUCOSE NEGATIVE (NEGATIVE); KETONE NEGATIVE (NEGATIVE); NITRITE NEGATIVE (NEGATIVE); PROTEIN NEGATIVE (NEGATIVE); RED CELLS - URINE 0-5 /hpf (0-5); SPECIFIC GRAVITY 1.015 (1.005-1.020); UROBILINOGEN NORMAL (NORMAL); WHITE CELLS - URINE NSEEN /hpf (0-5)
[2018-09-28] MEDS ORDERED: PHENERGAN25 MG RC (15:19)
[2018-09-28] MEDS ORDERED: LOMOTIL 2.5-0.1 EAC1 PO (15:35)
[2018-09-28] MEDS ORDERED: FLAGYL500 MG PO (15:36)
[2018-09-28 16:09] VITALS: BP 151/82
== END 2018-09-28 16:09 | disposition home or self-care (01) ==
LOC: D.ER 12:22
PROVIDERS: Emergency Medicine
DX: R11.10 Vomiting, unspecified (principal); R10.9 Unspecified abdominal pain; R19.7 Diarrhea, unspecified; K31.84 Gastroparesis

== ENCOUNTER 2018-10-13 18:42 | Emergency (ER) | payer MEDICAID ==
[~2018-10-13] VITALS: Ht 157.5 cm; Wt 72.7 kg
[~2018-10-13 18:42] MED LIST changes: +FLAGYL500 MG PO; +LOMOTIL 2.5-0.1 EAC1 PO; +PHENERGAN25 MG RC
[2018-10-13 19:08] VITALS: Ht 157.5 cm; Wt 72.7 kg
[2018-10-13 19:22] LABS: BASOPHILS 0.1 % (0-2); EOSINOPHILS 1.6 % (0-7); HEMATOCRIT 36.2 % (36.0-48.0); HEMOGLOBIN 11.7 g/dL (12-16); IMMATURE GRANULOCYTES 0.3 % (0-5); MCHC 32.3 g/dL (31.0-37.0); MCV 83.4 fL (80.0-100.0); MEAN PLATELET VOLUME 10.9 fL (7.4-10.4); MONOCYTES 10.2 % (2-11); NEUTROPHILS 67.8 % (40-80); PLATELET COUNT 298 10x3/uL (130-400); RBC 4.34 10x6/uL (4.00-5.40); RDW 14.2 % (11.5-14.5); WBC 10.3 10x3/uL (4.8-10.8)
[2018-10-13 19:42] LABS: ALBUMIN 3.1 g/dL (3.4-5.0); ALKALINE PHOSPHATASE 174 U/L (46-116); ALT (SGPT) 38 U/L (10-68); CALC OSMOLALITY 279 mosm/kg (275-300); CALCIUM 8.8 mg/dL (8.5-10.1); CHLORIDE - SERUM 106 mmol/L (98-107); CREATININE - SERUM 0.7 mg/dL (0.6-1.3); GLUCOSE 101 mg/dL (74-106); POTASSIUM - SERUM 3.5 mmol/L (3.5-5.1); PROTEIN - SERUM 6.7 g/dL (6.4-8.2); SODIUM 141 mmol/L (136-145); UREA NITROGEN 10 mg/dL (7-18); eGFR NON AFRICAN AMERICAN > 90 mL/min (90-120)
[2018-10-13 19:44] LABS: AMYLASE - SERUM 107 U/L (25-115); LIPASE 438 U/L (73-393); TROPONIN-I < 0.017 ng/mL (0.000-0.060)
[2018-10-13] MEDS ORDERED: ZOFRAN4 MG PO (21:42)
[2018-10-13] MEDS ORDERED: MIRALAX17 GM PO (21:42)
[2018-10-13 22:54] VITALS: BP 144/87
[2018-10-13 23:22] LABS: APPEARANCE HAZY (CLEAR); BILIRUBIN NEGATIVE (NEGATIVE); COLOR YELLOW (YELLOW); GLUCOSE NEGATIVE (NEGATIVE); KETONE NEGATIVE (NEGATIVE); NITRITE NEGATIVE (NEGATIVE); PH 6.5 (5.0-6.0); PROTEIN NEGATIVE (NEGATIVE); SPECIFIC GRAVITY 1.015 (1.005-1.020); UROBILINOGEN NORMAL (NORMAL)
== END 2018-10-13 22:54 | disposition home or self-care (01) ==
LOC: D.ER 18:42
PROVIDERS: Emergency Medicine
DX: R10.9 Unspecified abdominal pain (principal); K59.00 Constipation, unspecified; R11.0 Nausea; F17.200 Nicotine dependence, unspecified, uncomplicated

== ENCOUNTER 2018-11-07 06:38 | Outpatient (CLI) | payer MEDICAID ==
[~2018-11-07] VITALS: Ht 157.5 cm; Wt 72.7 kg
[~2018-11-07 06:38] MED LIST changes: +MIRALAX17 GM PO; +ZOFRAN4 MG PO
[2018-11-07 06:59] LABS: BASOPHILS 0.1 % (0-2); HEMATOCRIT 34.5 % (36.0-48.0); HEMOGLOBIN 11.2 g/dL (12-16); IMMATURE GRANULOCYTES 0.5 % (0-5); LYMPHOCYTES 19.5 % (15-50); MCH 26.5 pg (26.0-34.0); MCHC 32.5 g/dL (31.0-37.0); MCV 81.6 fL (80.0-100.0); MONOCYTES 8.4 % (2-11); NEUTROPHILS 70.5 % (40-80); PLATELET COUNT 334 10x3/uL (130-400); RBC 4.23 10x6/uL (4.00-5.40); RDW 14.9 % (11.5-14.5); WBC 12.1 10x3/uL (4.8-10.8)
[2018-11-07 07:09] LABS: APTT 26.5 SECONDS (22.8-39.4); INR 1.04 (0.85-1.17); PROTIME 13.1 SECONDS (11.6-15.0)
[2018-11-07 07:16] LABS: CALC OSMOLALITY 279 mosm/kg (275-300); CALCIUM 8.7 mg/dL (8.5-10.1); CARBON DIOXIDE 21.6 mmol/L (21.0-32.0); CHLORIDE - SERUM 104 mmol/L (98-107); CREATININE - SERUM 0.7 mg/dL (0.6-1.3); GLUCOSE 108 mg/dL (74-106); POTASSIUM - SERUM 3.3 mmol/L (3.5-5.1); SODIUM 139 mmol/L (136-145); UREA NITROGEN 16 mg/dL (7-18); eGFR NON AFRICAN AMERICAN > 90 mL/min (90-120)
[2018-11-07 08:06] VITALS: BP 113/52; Ht 157.5 cm; Wt 72.7 kg
--- NOTE | 2018-11-07 10:37 | NUR ---
1020 PT STATES HER PAIN LEVEL IS GOING UP AND WANTS SOMETHING FOR PAIN BEFORE SHE IS DISCHARGED HOME. [address] MCNEAL PT'S C/O PAIN AT BX SITE. ORDERS RECEIVED FOR TRAMADOL PO AND TYLENOL PO.
--- NOTE | 2018-11-07 10:57 | NUR ---
1045 PAIN MEDICINE GIVEN TO PATIENT ORDERED BY DR MCNEAL. PT STATES HER PAIN LEVEL IS AT 7 NOW. DSG DRY AND INTACT. NO SWELLING NOTED.
--- NOTE | 2018-11-07 11:27 | NUR ---
1107 IV DC'D. CATHETER INTACT. PRESSURE HELD AT SITE UNTIL BLEEDING STOPPED. BANDAID APPLIED AND IS DRY AND INTACT
--- NOTE | 2018-11-07 11:35 | NUR ---
1107 PT STATED THAT HER PAIN LEVEL WAS TRENDING DOWN AFTER PAIN MEDICATION. PT VOICES THAT SHE IS READY TO GO HOME.
== END 2018-11-07 11:15 | disposition home or self-care (01) ==
LOC: D.SP 06:38 → D.CT 09:00 → D.SP 11:15
PROVIDERS: Radiology Vascular & Interventional Radiology
DX: D72.829 Elevated white blood cell count, unspecified (principal)

== ENCOUNTER 2019-08-12 12:02 | Inpatient (IN) | payer MEDICAID ==
[~2019-08-12] VITALS: Ht 157.5 cm; Wt 61.4 kg
[2019-08-12] MEDS ORDERED: TRAZODONE HCL150 MG PO (12:28)
[2019-08-12] MEDS ORDERED: KLONOPIN1 MG PO (12:31)
[2019-08-12] MEDS ORDERED: ULTRAM50 MG PO (12:31)
[2019-08-12 12:32] VITALS: BP 134/88; BMI 24.7
--- NOTE | 2019-08-12 12:40 | NUR ---
PATIENT ADMITTED TO ROOM 2229. ADMISSION ASSESSMENT COMPLETE.
--- NOTE | 2019-08-12 13:06 | NUR ---
UNABLE TO SITE IV. ENVIRONMENTAL ENGINEERING TECHNICIAN FRANKIE NOTIFED AND STATES CAN CONSULT VASCULAR ACCESS. ENVIRONMENTAL ENGINEERING TECHNICIAN ALSO NOTIFIED PATIENT WANTING "STRONGER PAIN MEDICATION THAN TYLENOL OR TRAMADOL." STATES ORDER TRAMADOL 50MG QHRPRN. STATES NOT ORDERING STRONGER MEDICATION AT THIS TIME.
[2019-08-12 13:34] LABS: BASOPHILS 0.2 % (0-2); EOSINOPHILS 0.7 % (0-7); HEMATOCRIT 42.5 % (36.0-48.0); HEMOGLOBIN 13.5 g/dL (12-16); IMMATURE GRANULOCYTES 0.2 % (0-5); LYMPHOCYTES 12.8 % (15-50); MCH 26.6 pg (26.0-34.0); MCHC 31.8 g/dL (31.0-37.0); MCV 83.7 fL (80.0-100.0); MEAN PLATELET VOLUME 11.7 fL (7.4-10.4); MONOCYTES 6.8 % (2-11); NEUTROPHILS 79.3 % (40-80); PLATELET COUNT 304 10x3/uL (130-400); RBC 5.08 10x6/uL (4.00-5.40); RDW 14.6 % (11.5-14.5)
[2019-08-12 13:47] LABS: CALC OSMOLALITY 272 mosm/kg (275-300); CALCIUM 9.3 mg/dL (8.5-10.1); CARBON DIOXIDE 26.3 mmol/L (21.0-32.0); CHLORIDE - SERUM 104 mmol/L (98-107); CREATININE - SERUM 0.5 mg/dL (0.6-1.3); GLUCOSE 85 mg/dL (74-106); POTASSIUM - SERUM 4.4 mmol/L (3.5-5.1); SODIUM 138 mmol/L (136-145); UREA NITROGEN 6 mg/dL (7-18); eGFR NON AFRICAN AMERICAN > 90 mL/min (90-120)
--- NOTE | 2019-08-12 13:47 | NUR ---
IV SITED TO [facility] BY VASCULAR ACCESS NURSE.
[2019-08-12 13:53] LABS: ALBUMIN 3.8 g/dL (3.4-5.0); ALKALINE PHOSPHATASE 185 U/L (46-116); ALT (SGPT) 20 U/L (10-68); BILIRUBIN - TOTAL 0.16 mg/dL (0.2-1.3); PROTEIN - SERUM 7.6 g/dL (6.4-8.2)
--- NOTE | 2019-08-12 14:03 | NUR ---
EDUCATION PROVIDED ON NEED FOR URINE SAMPLE. COLLECTION CUP AND SUPPLIES IN ROOM. VERBALIZED UNDERSTANDING.
--- NOTE | 2019-08-12 14:23 | NUR ---
OBGYN NOTIFIED OF CONSULT.
[2019-08-12 14:41] LABS: APPEARANCE HAZY (CLEAR); BACTERIA FEW /hpf (NEGATIVE); BILIRUBIN NEGATIVE (NEGATIVE); COLOR PINK STRAW (YELLOW); EPITHELIAL CELLS 0-5 /hpf (0-5); GLUCOSE NEGATIVE (NEGATIVE); KETONE NEGATIVE (NEGATIVE); MUCUS <1+ /lpf (NONE SEEN); NITRITE NEGATIVE (NEGATIVE); PROTEIN NEGATIVE (NEGATIVE); SPECIFIC GRAVITY 1.005 (1.005-1.020); UROBILINOGEN NORMAL (NORMAL); WHITE CELLS - URINE RARE /hpf (NEGATIVE)
--- NOTE | 2019-08-12 14:56 | NUR ---
PATIENT REFUSED SCDS AND GOWN.
--- NOTE | 2019-08-12 15:11 | NUR ---
REQUESTING PAIN MEDICATION. NO ORDERS FOR PAIN MEDICATION OTHER THAN TRAMADOL. STATES TRAMADOL WILL NOT WORK. PREPARED FOODS ASSOCIATE FRANKIE AWARE. NO NEW ORDERS.
[2019-08-12 18:07] VITALS: Ht 157.5 cm; Wt 61.4 kg
[2019-08-12 18:40] LABS: HCG SERUM NEGATIVE (NEGATIVE)
--- NOTE | 2019-08-12 18:40 | NUR ---
EDUCATION PROVIDED ON NEED TO DRINK 2 LARGE CUPS WATER AND DO NOT VOID FOR ABD US. WATER PROVIDED. VERBALIZED UNDERSTANDING.
--- NOTE | 2019-08-12 18:53 | NUR ---
RESTING IN BED. DENIES NEEDS. BED LOW. CALL BOWLING AND PERSONAL ITEMS IN REACH.
--- NOTE | 2019-08-12 20:00 | NUR ---
ASSESSMENT PER FLOWSHEET. IV PATENT LEFT FOREARM SALINE LOCK. PT HAS GASTRO PARESIS PACEMAKER LEFT ABD. QUAD. AREA. FAMILY AT BEDSIDE.
[2019-08-12 20:31] VITALS: BP 138/76
--- NOTE | 2019-08-12 20:55 | NUR ---
MEDS GIVEN PER NOV. PT REQUESTING PAIN MED AND NERVE MED. FIORICET TAB 2 PO AND KLONOPIN 1MG PO GIVEN FOR PAIN AND NERVES.
--- NOTE | 2019-08-13 | NUR ---
PT C/O PAIN LYING IN BED IN POSITION STATES HAVING SEVERE CRAMPS IN ABDOMEN. NAKITA ASIF CALLED FOR MORE STRONGER MED. NOTIFIED DR. SMART ORDERS REC'D.
[2019-08-13 00:22] VITALS: BP 130/70
--- NOTE | 2019-08-13 00:41 | NUR ---
NORCO 5MG PO AND ZOFRAN 8MG PO GIVEN FOR PAIN. AMBIEN 10 MG PO GIVEN FOR SLEEP.
--- NOTE | 2019-08-13 02:00 | NUR ---
EYES CLOSED RESPIRATIONS WTH EASE AND UNLABORED.
[2019-08-13 03:58] VITALS: BP 109/65
--- NOTE | 2019-08-13 05:35 | NUR ---
EYES CLOSED RESPIRATIONS WITH EASE AND UNLABORED.
--- NOTE | 2019-08-13 07:30 | NUR ---
PT SITTING UP IN BED. RESP EVEN AND UNLABORED. REPORTS PAIN 6/10 AT THIS TIME. DISCUSSED NEXT TIME PAIN MEDICATION DUE. PT VOICES UNDERSTANDING. SALINE LOC TO LEFT FOREARM. SITE WITHOUT REDNESS OR EDEMA. DENIES FURTHER NEEDS AT THIS TIME. CL WITHIN REACH. ENCOURAGED TO CALL WITH NEEDS. CONTINUE POC
[2019-08-13 09:13] VITALS: BP 103/61
[2019-08-13 12:26] VITALS: BP 109/57
[2019-08-13 16:22] VITALS: BP 117/60
--- NOTE | 2019-08-13 16:48 | MORECARE ---
CASE MANAGEMENT DISCHARGE SUMMARY PATIENT: SUKHI COLLINS UNIT: [id number] ADM DATE: 08/12/19 AGE: 43 : 77 SEX: F ROOM/BED: D.2229 AUTHOR: OSCAR CASILLAS PHYSICIAN: REFERRING PHYSICIAN: JOHN JESSICA MD DATE OF SERVICE: 08/13/19 Discharge Plan Patient Name: SUKHI COLLINS Facility: [facility]:[place] : 1975 Planned Disposition: Home or Self Care Anticipated Discharge Date: Discharge Date: Expected LOS: Initial Reviewer: [email or web address] Initial Review Date: 08/13/2019 Generated: 08/13/19 5:47 pm DCPIA - Discharge Planning Initial Assessment Updated by [email or web address]: Anali Reyez on 08/13/19 4:47 pm * Is the patient Alert and Oriented? Yes * How many steps to enter\exit or inside your home? 4/0 * PCP Dr. Jessica * Pharmacy [facility] on [facility] * Preadmission Environment Home with Family * ADLs Independent * Equipment None * List name and contact numbers for known caregivers / representatives who currently or will assist patient after discharge: Nain [facility] - [phone] * Verbal permission to speak to the caregivers and representatives has been obtained from the patient. Yes * Community resources currently utilized None * Additional services required to return to the preadmission environment? No * Can the patient safely return to the preadmission environment? Yes * Has this patient been hospitalized within the prior 30 days at any hospital? No Patient Name: SUKHI COLLINS Page 03805 at 1648 All edits/amendments must be made on the electronic document DICTATION DATE: 08/13/191646 CHAPTER RELATIONS ADMINISTRATOR: CANDIS 08/13/191646 RPT#: [id number] DC DATE: STATUS: ADM IN [facility] [address] [place] [address] END OF REPORT
--- NOTE | 2019-08-13 16:57 | MORECARE ---
CASE MANAGEMENT DISCHARGE SUMMARY PATIENT: SUKHI COLLINS UNIT: [id number] ADM DATE: 08/12/19 AGE: 43 : 77 SEX: F ROOM/BED: D.2229 AUTHOR: VINNY,DOC PHYSICIAN: REFERRING PHYSICIAN: JOHN JESSICA MD DATE OF SERVICE: 08/13/19 Discharge Plan Patient Name: SUKHI COLLINS Facility: [facility]:[place] : 1975 Planned Disposition: Home or Self Care Anticipated Discharge Date: Discharge Date: Expected LOS: Initial Reviewer: [email or web address] Initial Review Date: 08/13/2019 Generated: 08/13/19 5:56 pm Comments DCP- Discharge Planning Updated by [email or web address]: Anali Reyez on 08/13/19 3:[address] Patient Name: SUKHI COLLINS Admission Status: Urgent Accout number: [id number] Admission Date: 08-12-2019 : 1975 Admission Diagnosis: Attending: JOHN JESSICA Current LOS: 1 Anticipated DC Date: Planned Disposition: Home or Self Care Primary Insurance: MEDICAID [place] Discharge Planning Comments: CM met with patient to complete initial dc planning assessment. CM educated patient on the CM role and verbal consent given by patient to complete assessment. Patient lives at home with her 16 year old twins and 4 year old. Discharge plan is to return home and feels this is a safe discharge. She states her spouse (they are ) will take her home on discharge. I discussed home health and DME needs and she denied discharge needs at this time. No needs identified. CM will continue to follow and assist with discharge planning/needs. Fire Extinguisher Tester: Anali Reyez DCPIA - Discharge Planning Initial Assessment Updated by [email or web address]: Anali Reyez on 08/13/19 4:47 pm * Is the patient Alert and Oriented? Yes * How many steps to enter\exit or inside your home? 4/0 * PCP Dr. Jessica * Pharmacy [facility] on [address] * Preadmission Environment Home with Family * ADLs Independent * Equipment None * List name and contact numbers for known caregivers / representatives who currently or will assist patient after discharge: Nain - spouse - [phone] * Verbal permission to speak to the caregivers and representatives has been obtained from the patient. Yes * Community resources currently utilized None * Additional services required to return to the preadmission environment? No * Can the patient safely return to the preadmission environment? Yes * Has this patient been hospitalized within the prior 30 days at any hospital? No Last DP export: 08/13/19 3:48 Patient Name: SUKHI COLLINS Page 93999 at 1657 All edits/amendments must be made on the electronic document DICTATION DATE: 08/13/191655 DENTAL FLOSS PACKER: CANDIS 08/13/191655 RPT#: [id number] MA DATE: STATUS: ADM IN [facility] [address] [place] [address] END OF REPORT
[2019-08-13 19:30] VITALS: BP 121/45; BP 126/83
--- NOTE | 2019-08-13 20:30 | NUR ---
A&O X 4, AMBULATORY AD GEOVANNY. PT VERBALIZES UNDERSTANDING OF NPO STATUS AFTER MIDNIGHT. ABDOMEN DISTENDED AND FIRM, PT REPORTS PAIN OF 8/10. DENIES NEEDS AT THIS TIME, WILL CONTINUE TO MONITOR.
[2019-08-14] VITALS (12 sets, daily range): BP systolic 106–131; BP diastolic 47–78
--- NOTE | 2019-08-14 04:10 | NUR ---
I have reviewed this patient and I concur with the Shift Assessment completed by the Licensed Practical Nurse today this shift.
--- NOTE | 2019-08-14 09:00 | NUR ---
PATIENT FAMILY HERE. TOLD FAMILY [id number] MARIN FOR THE SURGERY. CALL LIGHT IN REACH. NO FURTHER NEEDS AT THIS TIME. WCTM
[2019-08-15] VITALS: BP 115/72
[2019-08-15 04:00] VITALS: BP 121/79
[2019-08-15 07:55] VITALS: BP 114/64
--- NOTE | 2019-08-15 09:08 | OP ---
PATIENT NAME: SUKHI COLLINS MEDICAL RECORD: [id number] :[birth year] LOCATION:D.[facility] [id number] ADMISSION DATE:08/12/19 SURGEON: LM DAVISON MD DATE OF OPERATION: 08/14/2019 SURGEON: Lm Davison MD ANESTHESIA: General anesthesia by Merly Pelayo CRNA DIAGNOSES: Interstitial cystitis, female stress urinary incontinence. PROCEDURES: Cystoscopy, hydrodistention of the bladder. Pubovaginal sling with [employer] Obtryx II mesh graft. FINDINGS: On cystoscopy, inflamed bladder with no bladder tumors. Single ureteral orifices bilaterally with no bladder injury. ESTIMATED BLOOD LOSS: Minimal. CLINICAL HISTORY: This is a 43-year-old female with symptoms of interstitial cystitis. She also has stress urinary incontinence, as confirmed on physical examination. She does not have any significant cystocele or rectocele. She was scheduled to have a pubovaginal sling performed by me. However, 2 days prior to the surgery she was admitted to hospital for severe vaginal bleeding with pain. Dr. Serrato will be performing a D&C today on her and afterwards I will perform the pubovaginal sling insertion. She seemed to have endometriosis as the cause of this trouble. Dr. Serrato has already performed her surgery and she is already under general anesthesia. She has been given her preoperative antibiotics. She is in lithotomy position. I will now continue on with my part of the operation. DESCRIPTION OF PROCEDURE: The patient was given an indwelling Pittman catheter. I placed a right angle retractor to hold down the posterior vaginal wall. The labia majora were retracted laterally using stay sutures of #1 nylon. These were anchored to the medial thighs. The anterior vaginal wall in the region of the urethra was infiltrated with vasopressin solution. Twenty units of vasopressin was dissolved in 100 mL of injectable saline for hydrodissection. A vertical incision was then made over the urethra in the anterior vaginal wall. Dissection was then made using the Metzenbaum scissors in order to separate the vaginal wall from the periurethral ligaments. Laterally, we perforated the pubocervical fascia and dissected the space of Retzius bluntly with the fingers. This cleared off the obturator membrane. We then landmarked for insertion of the helical trocars. This is inferior to the insertion of the adductor longus muscle. A marking pen spot was placed here on each side. A stab incision was then made. The helical trocars were then placed through the groin incision, went deep to the descending pubic ramus and came out through the vaginal dissection space. Here the tip of the graft was attached to the tip of the needle and the needles were withdrawn, resulting in transobturator passage of the mesh graft. The tab on the middle of the graft indicating the midpoint of the graft was placed under the mid urethra. For the time being, the graft was placed loosely under the urethra. The tab was then removed. The Pittman catheter was removed and cystoscopy was performed using a 17-Surinamese cystoscope with 30-degree lens. No bladder tumors or bladder injury was noted. There was bladder inflammation consistent with interstitial cystitis. She had 600 mL of OPERATIVE REPORT [id number] SUKHI COLLINS fluid instilled into her bladder for hydrodistention. At this point, we lowered the legs, so that the patient would not be in lithotomy position. By applying suprapubic pressure with a full bladder, we could elicit leakage of fluid per the urethra. We gradually increased the sling tensioned until there was very minimal fluid coming out of the urethra with suprapubic pressure. I did not want to completely occlude the urethra, so I did not increase the tension at the point of occlusion. At this point, the clear plastic sheath material was removed by cutting the stitch on either side and pulling this clear plastic sheath off. The graft material was cut off where it exited the inguinal skin. The stab incisions were closed using Dermabond. The wound was irrigated out with normal saline and 4-0 running Monocryl was used to close the vaginal incision. The bladder was emptied temporarily by inserting a Pittman catheter. The catheter was then removed. I did not instill intravesical Rimso on this patient as her insurance will not cover Rimso treatment. 2 inch Kerlix infiltrated with estrogen cream was placed into the vagina. She is already an inpatient. Therefore, we will leave the vaginal packing in overnight and have the nurse remove in the morning. The Pittman catheter is out and we will give her a voiding trial. TRANSINT:[id number] Voice Confirmation ID: [id number] DOCUMENT ID: [id number] LM DAVISON MD at 0908 CC: [id number] DICTATION DATE: 08/14/19 185 HOSPITAL INSURANCE REPRESENTATIVE: 08/14/19 2210 ADM IN [place] [id number] [place] [id number]
[2019-08-15 12:49] VITALS: BP 116/55
[2019-08-15 18:08] VITALS: BP 109/56
[2019-08-15 20:00] VITALS: BP 98/47
[2019-08-16] VITALS (7 sets, daily range): BP systolic 103–137; BP diastolic 49–81
--- NOTE | 2019-08-16 08:33 | NUR ---
AWAKE AND ALERT. ORIENTED X3. NO C/O AT THIS TIME. STATED SHE'S A LITTLE SORE FROM SURGERY. LUNGS ARE CLEAR BILATERALLY, NO COUGH NOTED.SKIN IS INTACT WTIHOUT REDNESS. IV TO LEFT HAND IS PATENT WITHOUT REDNESS AT INSERTION SITE. SITTING UP IN BED EATING BREAKFAST. DENIES NEEDS.
--- NOTE | 2019-08-16 09:08 | NUR ---
REQUESTED AND GIVEN 1MG CLONIPIN PO FOR HOME DOSE. DENIES NEEDS.
--- NOTE | 2019-08-16 10:30 | NUR ---
REQUESTED AND GIVNE 2MG DILAUDID WITH 4MG ZOFRAN SLOW IVP FOR C/O ABDOMINAL PAIN LEVEL 8. REPORTS NOT FEELING WELL TODAY AND WANTS TO STAY ANOTHER NIGHT. PAGED JOSEP. WILL MONITOR.
--- NOTE | 2019-08-16 18:10 | NUR ---
OUT WITH AT THIS TIME. ATE ALL OF SUPPER. DENIES NEEDS. NO CHANGES NOTED.
--- NOTE | 2019-08-16 19:18 | NUR ---
PATIENT RESTING IN BED WITH NO S/S OF DISTRESS AND DENIES NEEDS AT THIS TIME. BED IN LOWEST POSITION AND CALL LIGHT WITHIN REACH. ENCOURAGED THE PATIENT TO CALL IF SHE HAS NEEDS. WILL CONTINUE TO MONITOR.
[2019-08-17] VITALS: BP 118/65
[2019-08-17 04:00] VITALS: BP 95/47
--- NOTE | 2019-08-17 07:42 | NUR ---
AWAKE AND ALERT. ORIENTED X3. C/O ABDOMINAL PAIN THIS AM. WILL CHECK ON PRN'S. LUNGS ARE CLEAR BILATERALLY, NO COUGH NOTED. SKIN IS INTACT WITHOUT REDNESS EXCEPT 3 SMALL INSERTION SITES TO ABDOMEN WHICH ARE CLEAN AND DRY. IV TO LEFT HAND IS PATENT WTIHOUT REDNESS AT INSERTION SITE. DENIES NEEDS. NO BM YET.
[2019-08-17 07:59] VITALS: BP 95/45
--- NOTE | 2019-08-17 08:20 | NUR ---
REQUESTED AND GIVEN 2 PERCOCET PO FOR C/O PAIN LEVEL 9. ALSO GIVEN 4MG ZOFRAN SLOW IVP AND CLONIPIN FOR ANXIETY. WILL MONITOR.
--- NOTE | 2019-08-17 11:15 | NUR ---
PATIENT IS AT DESK REQUETED TO GO HOME. DR. JESSICA NOTIFIED. DISCHARGE ORDERS RECEIVED. PATIENT IS WAITING ON RIDE AND PAIN MEDS TO DISCHARGE.
[2019-08-17 11:39] VITALS: BP 128/60
[2019-08-17] MEDS ORDERED: NEURONTIN 300300 MG PO (11:41)
[2019-08-17] MEDS ORDERED: PERCOCET 5-3251 TAB PO (11:42)
--- NOTE | 2019-08-17 13:05 | NUR ---
DISCHARGE INSTRUCTIONS GIVEN BOTH VERBALLY AND WRITTEN. ALL QUESTIONS ANSWERED. PATIENT VERBALIZED UNDERSTANDING OF SAME. NEEDED PRESCRIPTIONS GIVEN TO PATIENT. IV TO LEFT HAND D/C WITH CATHETER INTACT. ALL BELONGINGS WITH PATIENT. PATIENT DISCHARGED AMBULATORY WITH TO HOME.
--- NOTE | 2019-08-18 14:15 | MORECARE ---
CASE MANAGEMENT DISCHARGE SUMMARY PATIENT: SUKHI COLLINS UNIT: [id number] ADM DATE: 08/12/19 AGE: 43 : [birth year] SEX: F ROOM/BED: D.2229 AUTHOR: VINNYDOC PHYSICIAN: REFERRING PHYSICIAN: JOHN JESSICA MD DATE OF SERVICE: 08/18/19 Discharge Plan Patient Name: SUKHI COLLINS Facility: [facility]:[place] : 1975 Planned Disposition: Home or Self Care Anticipated Discharge Date: Discharge Date: 08/17/2019 Expected LOS: Initial Reviewer: [email or web address] Initial Review Date: 08/13/2019 Generated: 08/18/19 3:15 pm DCP- Discharge Planning Updated by [email or web address]: Anali Reyez on 08/13/19 3:[address] Patient Name: SUKHI COLLINS Admission Status: Urgent Accout number: [id number] Admission Date: 08-12-2019 : 1975 Admission Diagnosis: Attending: JOHN JESSICA Current LOS: 1 Anticipated DC Date: Planned Disposition: Home or Self Care Primary Insurance: MEDICAID [place] Discharge Planning Comments: CM met with patient to complete initial dc planning assessment. CM educated patient on the CM role and verbal consent given by patient to complete assessment. Patient lives at home with her 16 year old twins and 4 year old. Discharge plan is to return home and feels this is a safe discharge. She states her spouse (they are ) will take her home on discharge. I discussed home health and DME needs and she denied discharge needs at this time. No needs identified. CM will continue to follow and assist with discharge planning/needs. Sewer Pipe Sorter: Anali Reyez DCPIA - Discharge Planning Initial Assessment Updated by [email or web address]: Anali Reyez on 08/13/19 4:47 pm * Is the patient Alert and Oriented? Yes * How many steps to enter\exit or inside your home? 4/0 * PCP Dr. Jessica * Pharm[facility] [address] * Preadmission Environment Home with Family * ADLs Independent * Equipment None * List name and contact numbers for known caregivers / representatives who currently or will assist patient after discharge: Nain - spouse - [phone] * Verbal permission to speak to the caregivers and representatives has been obtained from the patient. Yes * Community resources currently utilized None * Additional services required to return to the preadmission environment? No * Can the patient safely return to the preadmission environment? Yes * Has this patient been hospitalized within the prior 30 days at any hospital? No Last DP export: 08/13/19 3:57 Patient Name: SUKHI COLLINS Page [id number] at 1415 All edits/amendments must be made on the electronic document DICTATION DATE: 08/18/191414 GROUND WATER PUMP INSTALLER: CANDIS 08/18/191414 RPT#: [id number] DC DATE:08/17/19 STATUS: DIS IN [facility] [address] [place] [address] END OF REPORT
--- NOTE | 2019-08-19 09:16 | OP ---
PATIENT NAME: SUKHI COLLINS MEDICAL RECORD: [id number] :[birth year] LOCATION:D.[id number] ADMISSION DATE:08/12/19 SURGEON: JESSICA SMART MD DATE OF OPERATION: 08/14/2019 PREOPERATIVE DIAGNOSES: 1. Dysfunctional uterine bleeding. 2. Pelvic pain. 3. Dysmenorrhea. 4. Stress urinary incontinence (see urology dictation). POSTOPERATIVE DIAGNOSES: 1. Dysfunctional uterine bleeding. 2. Pelvic pain. 3. Dysmenorrhea. 4. Stress urinary incontinence (see urology dictation). 5. Active endometriosis. 6. Left ovarian cyst. PROCEDURES PERFORMED: 1. Diagnostic laparoscopy. 2. Fulguration of endometriosis. 3. Dilation and curettage. SURGEON: Jessica Smart MD ICT BUSINESS DEVELOPMENT MANAGER: Dr. Frausto MUD CAR WORKER: Sanju Pelayo UROLOGIST: Dr. De León (for full dictation of sling procedure, please see Dr. De León's dictation). FINDINGS: Left ovarian cyst approximately 3 cm. The uterus is unremarkable. Both tubes are interrupted bilaterally with Falope rings. Active endometriosis is noted on the posterior leaf of the broad ligament. There were omental adhesions to the umbilicus. At the time of D&C, the vaginal vault was unremarkable and moderate tissue was returned. SPECIMENS REMOVED: Endometrial curettings. SPECIMEN DISPOSITION: Pathology. ESTIMATED BLOOD LOSS: Minimal. FLUIDS: 1 liter of lactated Ringer's for this portion of the procedure. URINE OUTPUT: 500 cc cath prior to the procedure. COMPLICATIONS: None. DRAIN: Pittman to gravity. INDICATIONS: The patient has been admitted through her primary doctor for intense pelvic pain and dysfunctional bleeding. The patient has had no period OPERATIVE REPORT [id number] SUKHI COLLINS in greater than 4 months and has an onset of heavy vaginal bleeding and intense cramps. The patient has been reporting pelvic pain in excess in the last 2 weeks. The patient is scheduled for sling procedure to address her stress urinary incontinence today and I will have D&C, diagnostic laparoscopy at the same time. DESCRIPTION OF PROCEDURE: After informed consent was assured, the patient was taken to the operating room where anesthetic was obtained and she was placed in [facility] stirrups. The patient is now prepped and draped. Attention was directed to the abdomen, where an incision was made 3 cm below the mid costochondral margin. Through this, a 5-mm port and after establishment of the pneumoperitoneum, a 5-mm scope was inserted. With the patient in Trendelenburg position, the above findings are encountered. Accessory ports were placed in the right lower quadrant in the midline. Through the midline port, a grasper was inserted and the left ovary is elevated. The cyst is now removed with a Thunderbeat coagulation cutter. The endometriosis implant on the posterior leaf of the broad ligament was identified. The Thunderbeat was used to desiccate this tissue. After this had been completed, the pneumoperitoneum was released. All ports were removed and all sites closed with a subcuticular stitch. The legs were positioned and a speculum was now introduced in the vagina. The cervix was grasped with a single-tooth tenaculum and dilated to accommodate a #2 sharp curette. This curette was passed gently to the fundus and with pressure applied to the wall of the uterus as it is withdrawn, good cry was obtained throughout and the specimen is obtained. Specimen is passed off the field. The single-tooth tenaculum that was used to hold the cervix during this procedure is removed. Some bleeding was noted and this is controlled with ring forceps. Sponge, lap and needle count is correct as the patient proceeds to the sling portion of her surgery. TRANSINT:[id number] Voice Confirmation ID: [id number] DOCUMENT ID: [id number] JESSICA SMART MD at 0916 CC: [id number] DICTATION DATE: 08/14/191758 ERGONOMICS TECHNICIAN: 08/14/192032 DIS IN 08/17/19 [facility] [address] [place] [address]
== END 2019-08-17 13:05 | disposition home or self-care (01) | DRG 742 ==
LOC: D.MS 12:02
PROVIDERS: Emergency Medicine; Obstetrics & Gynecology; Urology; ADMIT Legal Medicine; ATTEND Legal Medicine
PROC: 0U544ZZ Destruction of Uterine Supporting Structure, Percutaneous Endoscopic Approach (ICD-10-PCS; principal; 2019-08-14 11:30)
PROC: 0UB14ZZ Excision of Left Ovary, Percutaneous Endoscopic Approach (ICD-10-PCS; 2019-08-14 11:30)
PROC: 0UDB7ZZ Extraction of Endometrium, Via Natural or Artificial Opening (ICD-10-PCS; 2019-08-14 11:30)
PROC: 0TSD0ZZ Reposition Urethra, Open Approach (ICD-10-PCS; 2019-08-14 11:30)
DX: N92.1 Excessive and frequent menstruation with irregular cycle (principal); B37.0 Candidal stomatitis; N94.6 Dysmenorrhea, unspecified; N39.3 Stress incontinence (female) (male); R31.9 Hematuria, unspecified; K31.84 Gastroparesis; G89.29 Other chronic pain; Z87.440 Personal history of urinary (tract) infections; D72.829 Elevated white blood cell count, unspecified; N80.3 Endometriosis of pelvic peritoneum; N83.202 Unspecified ovarian cyst, left side

== ENCOUNTER 2019-08-22 12:41 | Emergency (ER) | payer MEDICAID ==
[~2019-08-22] VITALS: Ht 157.5 cm; Wt 61.4 kg
[~2019-08-22 12:41] MED LIST changes: +KLONOPIN1 MG PO; +NEURONTIN 300300 MG PO; +PERCOCET 5-3251 TAB PO; +TRAZODONE HCL150 MG PO; +ULTRAM50 MG PO
[2019-08-22 12:50] VITALS: Ht 157.5 cm; Wt 61.4 kg
[2019-08-22 13:42] LABS: BASOPHILS 0.2 % (0-2); EOSINOPHILS 1.9 % (0-7); HEMATOCRIT 33.2 % (36.0-48.0); HEMOGLOBIN 10.5 g/dL (12-16); IMMATURE GRANULOCYTES 0.4 % (0-5); LYMPHOCYTES 12.2 % (15-50); MCH 25.9 pg (26.0-34.0); MCHC 31.6 g/dL (31.0-37.0); MCV 81.8 fL (80.0-100.0); MEAN PLATELET VOLUME 12.3 fL (7.4-10.4); MONOCYTES 11.6 % (2-11); NEUTROPHILS 73.7 % (40-80); PLATELET COUNT 323 10x3/uL (130-400); RBC 4.06 10x6/uL (4.00-5.40); RDW 15.4 % (11.5-14.5); WBC 12.1 10x3/uL (4.8-10.8)
[2019-08-22 13:48] LABS: APPEARANCE HAZY (CLEAR); BACTERIA FEW /hpf (NEGATIVE); BILIRUBIN NEGATIVE (NEGATIVE); COLOR YELLOW (YELLOW); EPITHELIAL CELLS 0-5 /hpf (0-5); GLUCOSE NEGATIVE (NEGATIVE); KETONE NEGATIVE (NEGATIVE); MUCUS >1+ /lpf (NONE SEEN); NITRITE NEGATIVE (NEGATIVE); PROTEIN NEGATIVE (NEGATIVE); RED CELLS - URINE 0-5 /hpf (0-5); SPECIFIC GRAVITY 1.025 (1.005-1.020); UROBILINOGEN NORMAL (NORMAL); WHITE CELLS - URINE OCC /hpf (NEGATIVE)
[2019-08-22 14:20] LABS: CALC OSMOLALITY 276 mosm/kg (275-300); CHLORIDE - SERUM 106 mmol/L (98-107); CREATININE - SERUM 0.6 mg/dL (0.6-1.3); GLUCOSE 102 mg/dL (74-106); POTASSIUM - SERUM 3.6 mmol/L (3.5-5.1); SODIUM 140 mmol/L (136-145); UREA NITROGEN 8 mg/dL (7-18); eGFR NON AFRICAN AMERICAN > 90 mL/min (90-120)
[2019-08-22 14:21] LABS: CALCIUM 8.3 mg/dL (8.5-10.1)
[2019-08-22 14:28] LABS: ALBUMIN 2.8 g/dL (3.4-5.0); ALKALINE PHOSPHATASE 138 U/L (46-116); ALT (SGPT) 21 U/L (10-68); AMYLASE - SERUM 32 U/L (25-115); BILIRUBIN - TOTAL 0.14 mg/dL (0.2-1.3); LIPASE 42 U/L (73-393); PROTEIN - SERUM 5.8 g/dL (6.4-8.2); TROPONIN-I < 0.017 ng/mL (0.000-0.060)
[2019-08-22] MEDS ORDERED: CHRONULAC30 ML PO (16:17)
[2019-08-22 17:22] VITALS: BP 135/67
== END 2019-08-22 17:22 | disposition home or self-care (01) ==
LOC: D.ER 12:41
PROVIDERS: Family Medicine
DX: K59.00 Constipation, unspecified (principal); Z98.890 Other specified postprocedural states

== ENCOUNTER 2019-08-25 15:31 | Emergency (ER) | payer MEDICAID ==
[~2019-08-25] VITALS: Ht 157.5 cm; Wt 61.4 kg
[~2019-08-25 15:31] MED LIST changes: +CHRONULAC30 ML PO
[2019-08-25 15:46] VITALS: BP 137/74; Ht 157.5 cm; Wt 61.4 kg
[2019-08-25 16:09] LABS: BASOPHILS 0.1 % (0-2); EOSINOPHILS 0.9 % (0-7); HEMATOCRIT 35.6 % (36.0-48.0); HEMOGLOBIN 11.5 g/dL (12-16); IMMATURE GRANULOCYTES 0.2 % (0-5); LYMPHOCYTES 13.6 % (15-50); MCH 26.3 pg (26.0-34.0); MCHC 32.3 g/dL (31.0-37.0); MCV 81.3 fL (80.0-100.0); MEAN PLATELET VOLUME 10.6 fL (7.4-10.4); MONOCYTES 6.3 % (2-11); NEUTROPHILS 78.9 % (40-80); PLATELET COUNT 312 10x3/uL (130-400); RBC 4.38 10x6/uL (4.00-5.40); RDW 14.8 % (11.5-14.5); WBC 12.7 10x3/uL (4.8-10.8)
[2019-08-25 16:20] LABS: CALC OSMOLALITY 276 mosm/kg (275-300); CALCIUM 8.8 mg/dL (8.5-10.1); CARBON DIOXIDE 19.8 mmol/L (21.0-32.0); CHLORIDE - SERUM 104 mmol/L (98-107); CREATININE - SERUM 0.7 mg/dL (0.6-1.3); GLUCOSE 140 mg/dL (74-106); POTASSIUM - SERUM 3.1 mmol/L (3.5-5.1); SODIUM 138 mmol/L (136-145); UREA NITROGEN 10 mg/dL (7-18); eGFR NON AFRICAN AMERICAN > 90 mL/min (90-120)
[2019-08-25 16:29] LABS: ALBUMIN 2.9 g/dL (3.4-5.0); ALKALINE PHOSPHATASE 142 U/L (46-116); ALT (SGPT) 18 U/L (10-68); AMYLASE - SERUM 51 U/L (25-115); BILIRUBIN - TOTAL 0.19 mg/dL (0.2-1.3); LIPASE 69 U/L (73-393); PROTEIN - SERUM 6.8 g/dL (6.4-8.2)
== END 2019-08-25 18:52 | disposition left against medical advice (07) ==
LOC: D.ER 15:31
PROVIDERS: Family Medicine
DX: R10.9 Unspecified abdominal pain (principal)

== ENCOUNTER 2019-08-31 13:59 | Emergency (ER) | payer MEDICAID ==
[~2019-08-31] VITALS: Ht 157.5 cm; Wt 59.1 kg
[2019-08-31 14:12] VITALS: Ht 157.5 cm; Wt 59.1 kg
[2019-08-31 14:54] LABS: BASOPHILS 0.1 % (0-2); HEMATOCRIT 40.1 % (36.0-48.0); HEMOGLOBIN 12.9 g/dL (12-16); IMMATURE GRANULOCYTES 0.5 % (0-5); LYMPHOCYTES 20.1 % (15-50); MCH 26.3 pg (26.0-34.0); MCHC 32.2 g/dL (31.0-37.0); MCV 81.7 fL (80.0-100.0); MEAN PLATELET VOLUME 11.5 fL (7.4-10.4); MONOCYTES 10.5 % (2-11); NEUTROPHILS 67.8 % (40-80); PLATELET COUNT 191 10x3/uL (130-400); RBC 4.91 10x6/uL (4.00-5.40); WBC 7.8 10x3/uL (4.8-10.8)
[2019-08-31 15:24] LABS: HCG URINE NEGATIVE (NEGATIVE)
[2019-08-31 15:27] LABS: ALBUMIN 3.6 g/dL (3.4-5.0); ALKALINE PHOSPHATASE 160 U/L (46-116); ALT (SGPT) 18 U/L (10-68); AMYLASE - SERUM 117 U/L (25-115); BILIRUBIN - TOTAL 0.12 mg/dL (0.2-1.3); CALC OSMOLALITY 276 mosm/kg (275-300); CALCIUM 9.2 mg/dL (8.5-10.1); CARBON DIOXIDE 22.8 mmol/L (21.0-32.0); CHLORIDE - SERUM 105 mmol/L (98-107); CREATININE - SERUM 0.6 mg/dL (0.6-1.3); GLUCOSE 102 mg/dL (74-106); LIPASE 182 U/L (73-393); POTASSIUM - SERUM 3.9 mmol/L (3.5-5.1); PROTEIN - SERUM 7.4 g/dL (6.4-8.2); SODIUM 139 mmol/L (136-145); UREA NITROGEN 11 mg/dL (7-18); eGFR NON AFRICAN AMERICAN > 90 mL/min (90-120)
[2019-08-31 15:30] LABS: TROPONIN-I < 0.017 ng/mL (0.000-0.060)
[2019-08-31 15:45] LABS: APPEARANCE CLOUDY (CLEAR); BILIRUBIN NEGATIVE (NEGATIVE); COLOR YELLOW (YELLOW); GLUCOSE NEGATIVE (NEGATIVE); KETONE NEGATIVE (NEGATIVE); NITRITE NEGATIVE (NEGATIVE); PROTEIN TRACE mg/dL (NEGATIVE); UROBILINOGEN NORMAL (NORMAL)
[2019-08-31 15:46] LABS: AMORPHOUS SEDIMENT <1+ /lpf (NONE SEEN); BACTERIA MANY /hpf (NEGATIVE); MUCUS >1+ /lpf (NONE SEEN)
[2019-08-31 21:43] VITALS: BP 152/79
== END 2019-08-31 21:43 | disposition other institution (70) ==
LOC: D.ER 13:59
PROVIDERS: Family Medicine
DX: T82.9XXA Unspecified complication of cardiac and vascular prosthetic device, implant and graft, initial encounter (principal); K31.84 Gastroparesis; K74.60 Unspecified cirrhosis of liver

== ENCOUNTER 2019-09-05 14:45 | Emergency (ER) | payer MEDICAID ==
[~2019-09-05] VITALS: Ht 157.5 cm; Wt 59.1 kg
[2019-09-05 15:46] VITALS: Ht 157.5 cm; Wt 59.1 kg
[2019-09-05 16:33] LABS: APPEARANCE SL CLDY (CLEAR); BILIRUBIN NEGATIVE (NEGATIVE); COLOR YELLOW (YELLOW); GLUCOSE NEGATIVE (NEGATIVE); KETONE NEGATIVE (NEGATIVE); NITRITE NEGATIVE (NEGATIVE); PROTEIN TRACE mg/dL (NEGATIVE); UROBILINOGEN NORMAL (NORMAL)
[2019-09-05 16:35] LABS: WHITE CELLS - URINE 0-5 /hpf (NEGATIVE)
[2019-09-05 16:36] LABS: BACTERIA FEW /hpf (NEGATIVE); MUCUS <1+ /lpf (NONE SEEN)
[2019-09-05] MEDS ORDERED: MACROBID100 MG PO (17:26)
[2019-09-05] MEDS ORDERED: HYDROCODON-ACE1 EA10 PO (17:26)
[2019-09-05] MEDS ORDERED: KEFLEX500 MG PO (17:26)
[2019-09-05 17:41] LABS: BASOPHILS 0.1 % (0-2); EOSINOPHILS 0.6 % (0-7); HEMATOCRIT 37.2 % (36.0-48.0); HEMOGLOBIN 12.2 g/dL (12-16); IMMATURE GRANULOCYTES 0.1 % (0-5); LYMPHOCYTES 20.5 % (15-50); MCH 26.2 pg (26.0-34.0); MCHC 32.8 g/dL (31.0-37.0); MEAN PLATELET VOLUME 12.3 fL (7.4-10.4); MONOCYTES 9.3 % (2-11); NEUTROPHILS 69.4 % (40-80); PLATELET COUNT 277 10x3/uL (130-400); RBC 4.65 10x6/uL (4.00-5.40); WBC 8.9 10x3/uL (4.8-10.8)
[2019-09-05 17:47] LABS: CALC OSMOLALITY 277 mosm/kg (275-300); CALCIUM 9.2 mg/dL (8.5-10.1); CARBON DIOXIDE 24.4 mmol/L (21.0-32.0); CHLORIDE - SERUM 107 mmol/L (98-107); CREATININE - SERUM 0.4 mg/dL (0.6-1.3); GLUCOSE 95 mg/dL (74-106); POTASSIUM - SERUM 3.9 mmol/L (3.5-5.1); SODIUM 141 mmol/L (136-145); UREA NITROGEN 5 mg/dL (7-18); eGFR NON AFRICAN AMERICAN > 90 mL/min (90-120)
[2019-09-05 17:57] LABS: ALBUMIN 3.5 g/dL (3.4-5.0); ALKALINE PHOSPHATASE 123 U/L (46-116); ALT (SGPT) 17 U/L (10-68); AMYLASE - SERUM 139 U/L (25-115); BILIRUBIN - TOTAL 0.25 mg/dL (0.2-1.3); LIPASE 352 U/L (73-393); PROTEIN - SERUM 6.9 g/dL (6.4-8.2)
[2019-09-05 17:59] LABS: TROPONIN-I < 0.017 ng/mL (0.000-0.060)
[2019-09-05 18:29] VITALS: BP 179/74
== END 2019-09-05 17:58 | disposition home or self-care (01) ==
LOC: D.ER 14:45
PROVIDERS: Emergency Medicine
DX: N39.0 Urinary tract infection, site not specified (principal); G89.18 Other acute postprocedural pain; R10.30 Lower abdominal pain, unspecified

== ENCOUNTER → 2019-09-15 17:10 | Outpatient (CLI) | payer MEDICAID ==
[2019-09-05 15:46] VITALS: BMI 23.8
[~2019-09-15 17:10] MED LIST changes: +HYDROCODON-ACE1 EA10 PO; +KEFLEX500 MG PO; +MACROBID100 MG PO
== END | disposition home or self-care (01) ==
LOC: D.LABREF 17:10
PROVIDERS: ATTEND Urology
DX: R31.9 Hematuria, unspecified (principal)

== ENCOUNTER 2019-09-27 18:47 | Emergency (ER) | payer MEDICAID ==
[~2019-09-27] VITALS: Ht 157.5 cm; Wt 60.9 kg
[2019-09-27 18:57] VITALS: Ht 157.5 cm; Wt 60.9 kg
[2019-09-27 19:16] LABS: HCG URINE NEGATIVE (NEGATIVE)
[2019-09-27 19:22] LABS: APPEARANCE CLEAR (CLEAR); BACTERIA MANY /hpf (NEGATIVE); BILIRUBIN NEGATIVE (NEGATIVE); COLOR YELLOW (YELLOW); GLUCOSE NEGATIVE (NEGATIVE); KETONE NEGATIVE (NEGATIVE); MUCUS <1+ /lpf (NONE SEEN); NITRITE NEGATIVE (NEGATIVE); PROTEIN NEGATIVE (NEGATIVE); UROBILINOGEN NORMAL (NORMAL); WHITE CELLS - URINE 0-5 /hpf (NEGATIVE)
[2019-09-27 19:54] LABS: BASOPHILS 0.2 % (0-2); EOSINOPHILS 1.4 % (0-7); HEMATOCRIT 38.7 % (36.0-48.0); HEMOGLOBIN 12.5 g/dL (12-16); IMMATURE GRANULOCYTES 0.1 % (0-5); MCH 26.2 pg (26.0-34.0); MCHC 32.3 g/dL (31.0-37.0); MEAN PLATELET VOLUME 10.8 fL (7.4-10.4); MONOCYTES 9.8 % (2-11); NEUTROPHILS 70.5 % (40-80); PLATELET COUNT 253 10x3/uL (130-400); RBC 4.78 10x6/uL (4.00-5.40); RDW 14.7 % (11.5-14.5); WBC 8.4 10x3/uL (4.8-10.8)
[2019-09-27 20:02] LABS: CALC OSMOLALITY 273 mosm/kg (275-300); CALCIUM 8.9 mg/dL (8.5-10.1); CARBON DIOXIDE 24.7 mmol/L (21.0-32.0); CHLORIDE - SERUM 104 mmol/L (98-107); CREATININE - SERUM 0.6 mg/dL (0.6-1.3); GLUCOSE 91 mg/dL (74-106); POTASSIUM - SERUM 4.1 mmol/L (3.5-5.1); SODIUM 138 mmol/L (136-145); UREA NITROGEN 6 mg/dL (7-18); eGFR NON AFRICAN AMERICAN > 90 mL/min (90-120)
[2019-09-27 20:08] LABS: ALBUMIN 3.3 g/dL (3.4-5.0); ALKALINE PHOSPHATASE 164 U/L (46-116); ALT (SGPT) 21 U/L (10-68); BILIRUBIN - TOTAL 0.11 mg/dL (0.2-1.3); PROTEIN - SERUM 6.5 g/dL (6.4-8.2)
[2019-09-27 21:12] VITALS: BP 125/66
== END 2019-09-27 21:12 | disposition home or self-care (01) ==
LOC: D.ER 18:47
PROVIDERS: Emergency Medicine
DX: R10.9 Unspecified abdominal pain (principal); N93.8 Other specified abnormal uterine and vaginal bleeding; E78.5 Hyperlipidemia, unspecified; K74.60 Unspecified cirrhosis of liver

== ENCOUNTER 2019-10-13 07:00 | Day surgery (SDC) | payer MEDICAID ==
[2019-10-10 12:47] LABS: BASOPHILS 0.1 % (0-2); EOSINOPHILS 0.1 % (0-7); HEMATOCRIT 38.3 % (36.0-48.0); HEMOGLOBIN 12.8 g/dL (12-16); IMMATURE GRANULOCYTES 0.7 % (0-5); LYMPHOCYTES 6.3 % (15-50); MCH 26.3 pg (26.0-34.0); MCHC 33.4 g/dL (31.0-37.0); MCV 78.6 fL (80.0-100.0); MONOCYTES 8.2 % (2-11); NEUTROPHILS 84.6 % (40-80); PLATELET COUNT 228 10x3/uL (130-400); RBC 4.87 10x6/uL (4.00-5.40); RDW 14.9 % (11.5-14.5)
[2019-10-10 13:02] LABS: CALC OSMOLALITY 270 mosm/kg (275-300); CALCIUM 8.9 mg/dL (8.5-10.1); CARBON DIOXIDE 22.4 mmol/L (21.0-32.0); CHLORIDE - SERUM 102 mmol/L (98-107); CREATININE - SERUM 0.6 mg/dL (0.6-1.3); GLUCOSE 103 mg/dL (74-106); POTASSIUM - SERUM 3.5 mmol/L (3.5-5.1); SODIUM 136 mmol/L (136-145); UREA NITROGEN 10 mg/dL (7-18); eGFR NON AFRICAN AMERICAN > 90 mL/min (90-120)
[~2019-10-13] VITALS: Ht 157.5 cm; Wt 59.1 kg
[2019-10-13] VITALS (10 sets, daily range): BP systolic 104–130; BP diastolic 48–74; Ht 157.5 cm; Wt 59.1 kg
[~2019-10-13 07:00] MED LIST changes: +NORVASC5 MG PO
[2019-10-13 07:56] LABS: HCG URINE NEGATIVE (NEGATIVE)
--- NOTE | 2019-10-13 13:45 | NUR ---
TO ROOM 1274 VIA BED FROM . AWAKE AND VERBAL RESPONSES APPRO TO QUESTIONS. CO BEING THIRSTY. IV LT WRIST- UP 1000CC LR PLACED ON PUMP AT 125CC/HR. ABD SOFT. LAP INCISIONS X3 WITH DERMABOND. VS DONE. SCD PLACED. CALL LIGHT WITHIN PT REACH.
--- NOTE | 2019-10-13 13:58 | NUR ---
REQUESTING NAUSEA MED TO GO WITH PAIN MEDICATION. NOTED THAT HAD ZOFRAN AT 1300. PT STATES OK. TOLERATING PO FLUIDS.
--- NOTE | 2019-10-13 14:18 | NUR ---
DR SMART IN ROOM TALKING WITH PT.
--- NOTE | 2019-10-13 15:05 | NUR ---
PT RESTING EASILY. LAP INC X 3 TO ABDOMEN C/D/I WITH ADHESIVE. NO VAG BLEEDING NOTED. MINA DRAINING LARGE AMOUT OF CLEAR YELLOW URINE. IV INFUSING TO LEFT WRIST, LR @ 150CC/HR VIA PUMP. NO NEEDS AT THIS TIME.
--- NOTE | 2019-10-13 16:00 | NUR ---
report received on pt at this time.
--- NOTE | 2019-10-13 16:05 | NUR ---
pt a&a. pt able to answer questions approp. pt w/ no c/o at this time. assessment performed at this time. mcgill draining to gravity. scd's on & working. pt vss & w/ no s/s of dsitress at this time.
--- NOTE | 2019-10-13 16:05 | NUR ---
pt shown & able to demonstrate back TCDB.
--- NOTE | 2019-10-13 16:58 | NUR ---
pt c/o nausea, zofran given iv at this time.
--- NOTE | 2019-10-13 17:05 | NUR ---
pt request mcgill out. mcgill d/c at this time. pt tolerated well.
--- NOTE | 2019-10-13 17:10 | NUR ---
pt ambulated to at this time w/ steady gait. able to void 50ml clear yellow urine at this time & ambulate back to bed w/o difficulty.
--- NOTE | 2019-10-13 18:05 | NUR ---
PAIN MEDS GIVEN SEE EMAR.
--- NOTE | 2019-10-13 18:08 | NUR ---
IV SALINE LOCKED AT THIS TIME. PT W/ NO C/O AT THIS TIME.
--- NOTE | 2019-10-13 18:30 | NUR ---
PT GIVEN TORADOL SEE EMAR. PT STATES PAIN IS BETTER SINCE BEING GIVEN PAIN MEDSAT 180.
--- NOTE | 2019-10-13 19:00 | NUR ---
REPORT RECEIVED FROM STAS SHEN RN.
--- NOTE | 2019-10-13 19:10 | NUR ---
PT TRANSFERED TO ROOM 1219 VIA WC FROM [facility]. TOLERATED WELL.
--- NOTE | 2019-10-13 20:05 | NUR ---
PT RESTING IN BED. POC DISCUSSED. ASSESSMENT COMPLETE PER FLOWSHEET. VSS. PT DENIES ANY C/O PAIN AT THIS TIME. BSS CLEAR. ABDOMEN SOFT. ACTIVE BS X4 QUADRANTS. ABDOMINAL INCISIONS X2 C/D/I WITH DERMABOND. INCISION TO UMBILICUS C/D/I WITH DERMABOND. SL TO LEFT WRIST WITHOUT REDNESS OR TENDERNESS. QUESTIONS ANSWERED. NO REQUEST MADE. INSTRUCTED PT TO NOTIFY NURSE WITH ANY PROBLEMS, NEEDS, OR CONCERNS. VERBALIZED UNDERSTANDING. CALL LIGHT WITHIN PTS REACH. SR UP X2. BED IN LOW POSITION.
--- NOTE | 2019-10-13 21:15 | NUR ---
PT AMBULATING IN HALLWAYS. TOLERATING WELL.
--- NOTE | 2019-10-13 21:47 | NUR ---
ZOFRAN GIVEN FOR C/O NAUSEA. IV WITHOUT REDNESS OR TENDERNESS.
--- NOTE | 2019-10-13 21:58 | NUR ---
DILAUDID 2MG GIVEN C/O INCISIONAL PAIN.
[2019-10-14 00:20] VITALS: BP 121/61
--- NOTE | 2019-10-14 00:20 | NUR ---
PT REPORTS THAT SHE ATTEMPTED TO VOID AT ABOUT 2230 AND WAS UNABLE TO GO. SHE STATED THAT SHE DID NOT WANT TO BOTH ME (RN) SO SHE IS JUST NOW REPORTING THIS INFORMATION. I SCANNED HER BLADDER AND IT SHOWED THERE TO BE 94 ML. PT REPORTS THAT SHE DOES FEEL THE NEED TO VOID.
--- NOTE | 2019-10-14 00:30 | NUR ---
TIFFANIE DOOLEY, ON UNIT TO RESCAN PTS BLADDER. SCANNER SHOWS THERE TO BE 100ML. MIAH STATED THAT DR. SELLERS IS ON HER WAY TO THE HOSPITAL TO SE ANOTHER PT AND THAT SHE WILL REPORT THIS INFORMATION TO .
--- NOTE | 2019-10-14 01:10 | NUR ---
I&O CATHETER DONE PER DR. SELLERS'S ORDER WITH 225 ML OF DARK JANETTE COLORED URINE NOTED IN URINE BAG. PT ENCOURAGED TO DRINK PLENTY OF WATER AND THAT SHE WILL BE RECEIVING A BOLUS OF LR. PT TOLERATED WELL.
--- NOTE | 2019-10-14 01:17 | NUR ---
BOLUS OF LR STARTED TO THE LEFT WRIST. Nova MILLER RN
--- NOTE | 2019-10-14 02:00 | NUR ---
RN AT BEDSIDE ATTMEPTING TO RESITE IV.
--- NOTE | 2019-10-14 03:08 | NUR ---
TORADOL GIVEN SIVP. NO REDNES OR TENDERNESS NOTED TO SITE.
[2019-10-14 04:30] VITALS: BP 126/68
--- NOTE | 2019-10-14 04:30 | NUR ---
IV SITED TO LEFT FOOT PER ICU NURSE X 11 ATTEMPTS (3 RNS ATTEMPTED). NO REDNESS OR TENDERNESS NOTED TO SITE. PT UP TO BATHROOM. VOIDD 150ML OF YELLOW URINE. LR GOING AT 100ML/HR.
--- NOTE | 2019-10-14 04:56 | NUR ---
DILAUDID 2MG GIVEN SIVP. NO REDNESS OR TENDERNESS NOTED TO IV SITE.
--- NOTE | 2019-10-14 05:25 | NUR ---
PT RESTING IN BED WITH EYES CLOSED AND LIGHTS OFF. NO DISTRESS NOTED. BED IN LOW POSTION. SR UP X2. CALL LIGHT WITHIN PTS REACH.
[2019-10-14 07:20] VITALS: BP 108/51
--- NOTE | 2019-10-14 07:20 | NUR ---
PT A&A IN STABLE CONDITION AT THIS TIME. PT STATES SHE WAS JUST UP TO RR & ABLE TO VOID SMALL AMOUNT.
--- NOTE | 2019-10-14 07:58 | NUR ---
IV TO LEFT WRISTED DC'D DT INFILTRATION TO SITE.
--- NOTE | 2019-10-14 09:00 | NUR ---
DR SMART CALLS UNIT. REQUESTING TO KNOW IF PT IS ABLE TO VOID. INFORMED THAT PATIENT IS VOIDING THIS AM. MD GIVES ORDERS TO PREPARE PATIENT FOR DISCHARGE. PT TO BE TAKING PO PAIN MEDICATION. Ericka SHEN RN NOTIFIED.
--- NOTE | 2019-10-14 09:05 | NUR ---
KLONOPIN GIVEN AT THIS TIME. PT C/O OF PAIN. PAIN MEDS ALSO GIVEN SEE EMAR. PT ALSO C/O OF NAUSEA, ADVISED PT WILL OBTAIN ZOFRAN FOR PT.
--- NOTE | 2019-10-14 09:15 | NUR ---
PT GIVEN ZOFRAN IV AT THIS TIME. SEE EMAR.
--- NOTE | 2019-10-14 09:30 | NUR ---
PT STATES SHE WAS UP TO RR AGAIN & ABLE TO VOID.
--- NOTE | 2019-10-14 09:45 | NUR ---
PT RESTING W/ EYES CLOSED EASY TO WAKE. PT STATES PAIN IS A LITTLE BETTER SEE EMAR.
--- NOTE | 2019-10-14 10:48 | NUR ---
PT REQUEST RN CHECK TEMP STATES "I FEELS WARM." TEMP 97.8AX. PT HAD JUST TAKEN A DRINK OF WATER TEMP TAKEN AXILLARY.
--- NOTE | 2019-10-14 11:04 | NUR ---
DR. SMART STATED PT MAY BE D/C'ED HOME TO F/U IN 2WEEKS.
--- NOTE | 2019-10-14 11:10 | NUR ---
PT IN RR. STATED SHE IS VOIDING AT THIS TIME. RN WILL RETURN W/ D/C INSTRUCTIONS.
--- NOTE | 2019-10-14 11:15 | NUR ---
IV D/C AT THIS TIME.
[2019-10-14] MEDS ORDERED: MOBIC7.5 MG PO (11:23)
[2019-10-14] MEDS ORDERED: NEURONTIN 300300 MG PO (11:24)
[2019-10-14] MEDS ORDERED: PERCOCET 7.5/321 TAB PO (11:25)
--- NOTE | 2019-10-14 11:30 | NUR ---
DISCHARGE INSTRUCTIONS EXPLAINED TO PT, AND HER . COPIES PROVIDED TO PT, ALONG WITH INFORMATION SHEETS FOR POST HYSTERCTOMY CARE, EMERGENT INFO SHEET, D/C INSTRUCTION SHEETS, AND PRESCRIPTIONS. PT DENIES QUESTIONS. PT TAKEN OUT TO PRIVATE CAR, BY WHEELCHAIR IN STABLE CONDITION, BY VOLUNTEER.
--- NOTE | 2019-11-01 10:50 | OP ---
PATIENT NAME: SUKHI COLLINS MEDICAL RECORD: [id number] :[birth year] LOCATION:D[facility] ADMISSION DATE: SURGEON: TOMMY SMART MD DATE OF OPERATION: 10/13/2019 DATE OF SERVICE: 10/13/2019 PREOPERATIVE DIAGNOSES: 1. Dysfunctional uterine bleeding. 2. Dysmenorrhea. 3. Pelvic pain. POSTOPERATIVE DIAGNOSES: 1. Dysfunctional uterine bleeding. 2. Dysmenorrhea. 3. Pelvic pain. PROCEDURE: 1. Diagnostic laparoscopy. 2. Total laparoscopic hysterectomy. 3. Left salpingo-oophorectomy. 4. Right salpingectomy. SURGEON: Tommy Smart MD LITHOPRESS OPERATOR: Jett. CHILDREN'S SERVICE WORKER: Dr. Bobby Davis. ANESTHESIA: General. FINDINGS: Uterus, tubes, and ovary unremarkable. What was visualized of the abdominal anatomy was unremarkable. SPECIMENS REMOVED: Uterus with cervix, bilateral tubes and left ovary. SPECIMEN DISPOSITION: All specimens to pathology. ESTIMATED BLOOD LOSS: Less than or equal to 75 cc. FLUIDS: 1900 cc of lactated Ringer's. URINE OUTPUT: 75 cc of clear urine. COMPLICATIONS: None. DRAINS: Pittman to gravity discontinued upon arrival to the floor. INDICATIONS: The patient is a 43-year-old female with heavy painful periods. The patient also had pelvic pain, dyspareunia. The patient is consented for total laparoscopic hysterectomy, left salpingo-oophorectomy and right salpingectomy. DESCRIPTION OF PROCEDURE: After informed consent was assured, the patient was taken to the operating room where anesthetic was obtained without difficulty. OPERATIVE REPORT [id number] SUKHI COLLINS The patient was prepped and draped in the usual sterile fashion. Uterine manipulator was placed and attention directed to the abdomen where an incision was made to accommodate a 5-mm trocar. This trocar was inserted without difficulty and pneumoperitoneum was developed. Accessory ports are now placed in the right and left lower quadrant. The right lower quadrant port was a 10-mm port. The left lower quadrant was a 5-mm port. With the patient in steep Trendelenburg and the bowel swept free of the pelvis, right tube was identified, elevated, and using the Thunderbeat coagulation cutter the tube was removed from its attachments to the adnexa. The dissection was carried out of the uteroovarian and round ligaments. Anterior leaf of the broad ligament was opened and the bladder flap mobilized to the midline. The posterior tissues were dissected free and the vascular bundle of the right side, which was now compressed, coagulated, and to the level of the internal os. Attention was directed to the left side. The left ovary and tube were elevated with its positioning deep in the pelvis. It was removed. The ovary and tube was elevated and using the Thunderbeat coagulation cutter, the infundibulopelvic ligament was compressed, coagulated, and . The dissection was carried out underneath the left tube and ovary across the round ligament and the anterior leaf of the broad ligament was opened and the bladder flap now fully developed. The posterior leaf was dissected free of the vascular bundle of the left side, which was now compressed, coagulated, and . Dissection of the uterus from its attachments to the vagina begins at the 12 o'clock position. Once the cup had been reached, dissection was carried out from the 12 to 6 o'clock position moving in a counterclockwise fashion and then from 12 to 6 on the right side moving clockwise. The uterus, tubes and ovaries were now pulled into the vagina. The pneumoperitoneum was maintained. The cuff was inspected and bleeding vessels that are identified are cauterized. Cuff was now closed with EndoStitch. The interrupted stitches were started on the right side and concluded on the left. The uterosacral ligaments were incorporated into the cuff closure to allow for apical support. Sponge, lap, and needle counts correct times 2 as the pneumoperitoneum was released. The accessory ports were removed and the primary port was now removed. All sites were closed with a subcuticular stitch and Dermabond applied. The patient was awakened and went to the recovery room in stable condition. TRANSINT:[id number] Voice Confirmation ID: [id number] DOCUMENT ID: [id number] TOMMY SMART MD at 1050 CC: [id number] DICTATION DATE: 10/30/19 1022 [facility] [place]: 10/30/19 1327 [facility] 10/14/19 [id number] [place] [address]
== END 2019-10-14 11:30 | disposition home or self-care (01) ==
LOC: D.OPS 07:00 → D.PAN 09:00 → D.OPS 09:45 → D.PAN 09:45 → D.LD 13:17 → D.WS 20:54 → D.OPS 10-14 11:30
PROVIDERS: ATTEND Obstetrics & Gynecology
DX: N93.8 Other specified abnormal uterine and vaginal bleeding (principal); N94.6 Dysmenorrhea, unspecified; R10.2 Pelvic and perineal pain; N80.3 Endometriosis of pelvic peritoneum; N94.10 Unspecified dyspareunia

== ENCOUNTER → 2020-06-09 11:27 | Outpatient (CLI) | payer MEDICAID ==
[2019-10-13 16:42] VITALS: BMI 23.8
[~2020-06-09 11:27] MED LIST changes: +MOBIC7.5 MG PO; +PERCOCET 7.5/321 TAB PO
[2020-06-09 12:06] LABS: ALBUMIN 3.6 g/dL (3.4-5.0); ALKALINE PHOSPHATASE 147 U/L (30-120); ALT (SGPT) 17 U/L (10-68); BILIRUBIN - TOTAL 0.23 mg/dL (0.2-1.3); CALC OSMOLALITY 271 mosm/kg (275-300); CALCIUM 8.7 mg/dL (8.5-10.1); CHLORIDE - SERUM 102 mmol/L (98-107); CREATININE - SERUM 0.7 mg/dL (0.6-1.3); GLUCOSE 99 mg/dL (74-106); PROTEIN - SERUM 7.3 g/dL (6.4-8.2); SODIUM 137 mmol/L (136-145); UREA NITROGEN 8 mg/dL (7-18); eGFR NON AFRICAN AMERICAN > 90 mL/min (90-120)
[2020-06-09 12:10] LABS: BASOPHILS 0.2 % (0-2); EOSINOPHILS 0.6 % (0-7); HEMATOCRIT 43.1 % (36.0-48.0); HEMOGLOBIN 14.3 g/dL (12-16); IMMATURE GRANULOCYTES 0.4 % (0-5); LYMPHOCYTES 13.8 % (15-50); MCH 29.3 pg (26.0-34.0); MCHC 33.2 g/dL (31.0-37.0); MCV 88.3 fL (80.0-100.0); MEAN PLATELET VOLUME 11.8 fL (7.4-10.4); RBC 4.88 10x6/uL (4.00-5.40); WBC 13.1 10x3/uL (4.8-10.8)
[2020-06-09 12:12] LABS: PLATELET COUNT 283 10x3/uL (130-400)
[2020-06-09 13:11] LABS: ERYTHROCYTE SEDIMENTATION RATE 12 mm/hr (0-20)
== END | disposition home or self-care (01) ==
LOC: D.CT 05-21 11:30 → D.LAB 05-21 12:00
PROVIDERS: ATTEND Internal Medicine Gastroenterology
DX: R11.2 Nausea with vomiting, unspecified (principal); K21.9 Gastro-esophageal reflux disease without esophagitis; K31.84 Gastroparesis